=== PATIENT | female | born 1940 | race Caucasian/White ===

== ENCOUNTER 2016-10-04 18:41 | Emergency (ER) | payer MEDICARE ==
[~2016-10-04] VITALS: Ht 170.2 cm; Wt 88.3 kg
[~2016-10-04 18:41] MED LIST: ENAL20TA PO; LABE300T PO; MAXZ25 PO
[2016-10-04 18:49] VITALS: BP 124/73; PULSE 91; RESP 18; TEMP 99; O2SAT 95
[2016-10-04] MEDS ORDERED: SODIUM CHLORIDE 0.9% FLUSH 10 ML FLUSH IV FLUSH PRN (19:30)
[2016-10-04 19:34] VITALS: RESP 18; O2SAT 95
--- NOTE | 2016-10-04 19:38 | PD ---
HPI Chief Complaint: GI Complaint Time Seen by Provider: 19:36 Travel History International Travel<30 days: No Contact w/Intl Traveler<30days: No Traveled to known affect area: No History of Present Illness HPI Patient 76-year-old female with a history of chronic colitis presents emergency department for evaluation of diarrhea and nausea without vomiting. Patient states that she's been having diarrhea since last night. States that she did go to [employer] last night but she thought that her symptoms are starting to spread to that. She is on Asacol for chronic colitis. She took some Lomotil today without significant relief. Denies any abdominal pain denies any fever denies any blood in the stool or dark stools. Denies any hemoptysis or hematemesis. States she thinks that she is dehydrated. PFSH Past Medical History Cancer: No Cardiovascular Problems: No High Cholesterol: Yes Endocrine: No Gastrointestinal Disorders: Yes (ULCERATIVE COLITIS, BARRETTS ESOPHAGUS) Genitourinary: No Hepatitis: No Hiatal Hernia: Yes (SMALL ) Hypertension: Yes Immune Disorder: No Musculoskeletal: Yes (DDD CERVICAL AND SHOULDERS) Neurologic: Yes (MIGRAINES, HX VERTIGO RESOLVED) Psychiatric: Yes (ANXIETY) Respiratory: No Menopausal: Yes Past Surgical History Abdominal Surgery: Yes (UMBILICAL HERNIA) Body Medical Devices: NONE Cardiac Surgery: No Ear Surgery: No Endocrine Surgery: Yes (REMOVED BENIGN THYROID TUMOR) Eye Surgery: No Genitourinary Surgery: No Gynecologic Surgery: Yes (TL) Oral Surgery: Yes (TONSILLECTOMY) Thoracic Surgery: No Other Surgery: Yes (BENIGN THYROID TUMOR- PARTIAL THYROID REMOVED) Social History Alcohol Use: Yes (OCCAS) Tobacco Use: No (QUIT 1993 SMOKED CIGS FOR 30 YRS) Substance Use: No Allergies-Medications (Allergen,Severity, Reaction): Coded Allergies: Local Anesthetics (Verified Allergy, Mild, Swelling, 10/04/16) MOST YUSUF Succinylcholine (Verified Adverse Reaction, Severe, 10/04/16) COULDN'T WAKE UP Reported Meds & Prescriptions Reported Meds & Active Scripts Active Zofran Odt (Ondansetron Odt) 4 Mg Tab 4 Mg SL Q6HR PRN Flagyl (Metronidazole) 500 Mg Tab 500 Mg PO BID 7 Days Ciprofloxacin (Ciprofloxacin HCl) 500 Mg Tab 500 Mg PO BID 7 Days Bentyl (Dicyclomine HCl) 10 Mg Cap 10 Mg PO TID PRN Reported Omeprazole 20 Mg Tab 20 Mg PO DAILY Asacol HD (Mesalamine) 800 Mg Tab 1,600 Mg PO TID Swallow whole. Take on an empty stomach. Triamterene-Hydrochlorothiazide 37.5-25 Mg Tab 1 Tab PO DAILY Labetalol (Labetalol HCl) 200 Mg Tab 200 Mg PO TID Enalapril (Enalapril Maleate) 20 Mg Tab 20 Mg PO DAILY Review of Systems Except as stated in HPI: all other systems reviewed are Neg Physical Exam Narrative GENERAL: Well-developed well-nourished no apparent distress SKIN: Focused skin assessment warm/dry. HEAD: Atraumatic. Normocephalic. EYES: Pupils equal and round. No scleral icterus. No injection or drainage. ENT: No nasal bleeding or discharge. Mucous membranes pink and moist. NECK: Trachea midline. No JVD. CARDIOVASCULAR: Regular rate and rhythm. No murmur appreciated. RESPIRATORY: No accessory muscle use. Clear to auscultation. Breath sounds equal bilaterally. GASTROINTESTINAL: Abdomen soft, non-tender, minimally distended, tympanic percussion. Rebound no percussive tenderness. Hepatic and splenic margins not palpable. MUSCULOSKELETAL: No obvious deformities. No clubbing. No cyanosis. No edema. NEUROLOGICAL: Awake and alert. No obvious cranial nerve deficits. Motor grossly within normal limits. Normal speech. PSYCHIATRIC: Appropriate mood and affect; insight and judgment normal. Data Data Last Documented VS Vital Signs Date Time Temp Pulse Resp B/P Pulse Ox O2 Delivery O2 Flow Rate FiO2 10/04/16 23:25 18 96 10/04/16 22:16 80 156/73 Room Air 10/04/16 18:49 99.0 Orders Complete Blood Count With Diff (10/04/16 19:25) Comprehensive Metabolic Panel (10/04/16 19:25) Lipase (10/04/16 19:25) Prothrombin Time / Inr (Pt) (10/04/16 19:25) Act Partial Throm Time (Ptt) (10/04/16 19:25) Urinalysis - C+S If Indicated (10/04/16 19:25) Iv Access Insert/Monitor (10/04/16 19:25) Ecg Monitoring (10/04/16 19:25) Oximetry (10/04/16 19:25) Sodium Chloride 0.9% Flush (Ns Flush) (10/04/16 19:30) Ondansetron Inj (Zofran Inj) (10/04/16 19:45) Sodium Chlor 0.9% 1000 Ml Inj (Ns 1000 M (10/04/16 19:45) Ct Abd/Pel W Iv Contrast(Rout) (10/04/16 ) Iohexol 350 Inj (Omnipaque 350 Inj) (10/04/16 22:16) Ciprofloxacin (Cipro) (10/04/16 23:15) Metronidazole (Flagyl) (10/04/16 23:15) Labs Laboratory Tests Test 10/04/16 10/04/16 19:45 19:50 Urine Color YELLOW Urine Turbidity CLEAR Urine pH 6.0 Urine Specific [place] 1.019 Urine Protein NEG mg/dL Urine Glucose (UA) NEG mg/dL Urine Ketones NEG mg/dL Urine Occult Blood TRACE Urine Nitrite NEG Urine Bilirubin NEG Urine Leukocyte Esterase NEG Urine RBC 0-3 /hpf Urine Squamous Epithelial 6-8 /hpf Cells Urine Amorphous Sediment SMALL Urine Mucus OCC /lpf Microscopic Urinalysis Comment CULT NOT INDICATED White Blood Count 8.6 TH/MM3 Red Blood Count 4.64 MIL/MM3 Hemoglobin 13.6 GM/DL Hematocrit 39.0 % Mean Corpuscular Volume 84.1 FL Mean Corpuscular Hemoglobin 29.3 PG Mean Corpuscular Hemoglobin 34.9 % Concent Red Cell Distribution Width 12.4 % Platelet Count 263 TH/MM3 Mean Platelet Volume 9.3 FL Neutrophils (%) (Auto) 87.5 % Lymphocytes (%) (Auto) 6.6 % Monocytes (%) (Auto) 5.4 % Eosinophils (%) (Auto) 0.4 % Basophils (%) (Auto) 0.1 % Neutrophils # (Auto) 7.5 TH/MM3 Lymphocytes # (Auto) 0.6 TH/MM3 Monocytes # (Auto) 0.5 TH/MM3 Eosinophils # (Auto) 0.0 TH/MM3 Basophils # (Auto) 0.0 TH/MM3 CBC Comment DIFF FINAL Differential Comment Prothrombin Time 10.7 SEC Prothromb Time International 1.0 RATIO Ratio Activated Partial 27.3 SEC Thromboplast Time Sodium Level 132 MEQ/L Potassium Level 3.7 MEQ/L Chloride Level 96 MEQ/L Carbon Dioxide Level 28.2 MEQ/L Anion Gap 8 MEQ/L Blood Urea Nitrogen 15 MG/DL Creatinine 0.79 MG/DL Estimat Glomerular Filtration 71 ML/MIN Rate Random Glucose 137 MG/DL Calcium Level 8.2 MG/DL Total Bilirubin 0.9 MG/DL Aspartate Amino Transf 17 U/L (AST/SGOT) Alanine Aminotransferase 24 U/L (ALT/SGPT) Alkaline Phosphatase 74 U/L Total Protein 7.1 GM/DL Albumin 3.4 GM/DL Lipase 107 U/L MDM Medical Decision Making Medical Screen Exam Complete: Yes Emergency Medical Condition: Yes Differential Diagnosis Colitis, diverticulitis, small bowel obstruction seems unlikely, electrolyte abnormality. Narrative Course 76-year-old female with a history of chronic colitis presents emergency department for evaluation of abdominal distention and discomfort. She was offered pain medicine multiple times and declined. Basic labs are reassuring, CAT scan of her abdomen does show some evidence of diverticulitis. There is also a pancreatic tail cystic mass which the patient has been aware of in the past. On my revisit the patient states she is feeling better after the Zofran and fluids. I discussed with her that she needs to follow up with her colorectal surgeon Dr. Fitzpatrick and she has plans for colonoscopy on Wednesday. Recommend that she call first thing Wednesday after the holiday weekend to reevaluate the possibility for colonoscopy. She is also encouraged follow- up with her GI doctor Dr. Hendrickson. She is stable for discharge at this time. Discussed symptomatically management returned ED criteria. Diagnosis Primary Impression: Diverticulitis Additional Impression: Pancreatic mass Med/Other Pt SpecificInfo: Prescription(s) given Scripts Ondansetron Odt (Zofran Odt)4 Mg Tab4 Mg SL Q6HR PRN (Nausea/Vomiting) #20 TAB Ref 0 Prov:Telly Hayward MD 10/04/16 Metronidazole (Flagyl)500 Mg [id number] Mg PO BID 7 Days Ref 0 Prov:Telly Hayward MD 10/04/16 Ciprofloxacin 500 Mg [id number] Mg PO BID 7 Days Ref 0 Prov:Telly Hayward MD 10/04/16 Dicyclomine (Bentyl)10 Mg Cap10 Mg PO TID PRN (Bowel Management) #20 CAP Ref 0 Prov:Telly Hayward MD 10/04/16 Disposition: 01 DISCHARGE HOME Condition: Stable Telly Hayward MD October 04, 2016 19:38
[2016-10-04] MEDS ORDERED: SODIUM CHLOR 0.9% 1000 ML INJ 1,000 ML IV ONE (19:45)
[2016-10-04] MEDS ORDERED: ONDANSETRON HCL 4 MG/2 ML VIAL IV PUSH ONE (19:45)
[2016-10-04 20:04] LABS: BLOOD, URINE TRACE (NEG); GLUCOSE,URINE NEG (NEG); KETONE, URINE NEG (NEG); NITRITE,URINE NEG (NEG)
[2016-10-04 20:21] LABS: URINE COLOR YELLOW (YELLW/STRAW)
[2016-10-04 20:22] LABS: MUCUS URINE OCC /lpf (OCC); RBC, URINE 0-3 /hpf (0-3)
[2016-10-04 20:23] LABS: COMMENT (UR) CULT NOT INDICATED; CULTURE IF INDICATED CULT NOT INDICATED
[2016-10-04] MEDS ORDERED: OMEP20TA PO (20:24)
[2016-10-04] MEDS ORDERED: ASAC800T PO (20:24)
[2016-10-04] MEDS ORDERED: ENAL20TA PO (20:24)
[2016-10-04] MEDS ORDERED: TRIA37.5 PO (20:24)
[2016-10-04] MEDS ORDERED: LABE200T2 PO (20:24)
[2016-10-04 20:29] LABS: CHLORIDE 96 MEQ/L (98-107); POTASSIUM 3.7 MEQ/L (3.5-5.1); SODIUM (NA) 132 MEQ/L (136-145)
[2016-10-04 20:33] LABS: ANION GAP 8 MEQ/L (5-15); BICARBONATE 28.2 MEQ/L (21.0-32.0); BLOOD UREA NITROGEN 15 MG/DL (7-18)
[2016-10-04 20:34] LABS: APTT (PATIENT) 27.3 SEC (24.3-30.1); PROTHROMBIN TIME - PATIENT 10.7 SEC (9.8-11.6)
[2016-10-04 20:36] LABS: ALT (GPT) 24 U/L (10-53); AST (GOT) 17 U/L (15-37); GLOMERULAR FILTRATION RATE 71 ML/MIN (>89)
[2016-10-04 20:37] LABS: TOTAL BILIRUBIN ADULT 0.9 MG/DL (0.2-1.0)
[2016-10-04 20:38] LABS: ALKALINE PHOSPHATASE 74 U/L (45-117)
[2016-10-04 20:41] LABS: AUTOMATED NEUTROPHIL # 7.5 TH/MM3 (1.8-7.7); BASOPHIL % 0.1 % (0.0-2.0); EOSINOPHIL % 0.4 % (0.0-4.0); LYMPH % 6.6 % (9.0-44.0); LYMPHOCYTE # 0.6 TH/MM3 (1.0-4.8); MEAN CELL VOLUME 84.1 FL (80.0-100.0); MEAN CORPUSCULAR HEMOGLOBIN 29.3 PG (27.0-34.0); MEAN CORPUSCULAR HGB CONC 34.9 % (32.0-36.0); MONO % 5.4 % (0.0-8.0); NEUT % 87.5 % (16.0-70.0); PLATELET COUNT 263 TH/MM3 (150-450); RED BLOOD COUNT 4.64 MIL/MM3 (4.00-5.30); RED CELL DISTRIBUTION WIDTH 12.4 % (11.6-17.2); WHITE BLOOD COUNT 8.6 TH/MM3 (4.0-11.0)
[2016-10-04 20:45] LABS: HEMO FLAGS DIFF FINAL
[2016-10-04 20:54] VITALS: BP 145/73; PULSE 73; RESP 18; O2SAT 97
[2016-10-04 22:16] VITALS: BP 156/73; PULSE 80; RESP 18; O2SAT 99
[2016-10-04] MEDS ORDERED: IOHEXOL 350 MG/ML 10 ML VIAL (for RAD DIAG) IV ONE (22:16)
--- NOTE | 2016-10-04 22:37 | RADHPO ---
EXAM DATE/TIME: 10/04/2016 21:56 [facility] COMPARISON: No previous studies available for comparison. INDICATIONS : Epigastric pain. Nausea and diarrhea. Distention. IV CONTRAST: 100 cc Omnipaque 350 (iohexol) IV ORAL CONTRAST: No oral contrast ingested. RADIATION DOSE: 18.34 CTDIvol (mGy) MEDICAL HISTORY : Ulcerative colitis. Hernia, hiatal. Hypertension. Fernando's esophagus. SURGICAL HISTORY : Umbilical hernia repair. Tubal ligation. ENCOUNTER: Initial ACUITY: 1 day PAIN SCALE: 3/10 LOCATION: Bilateral upper quadrant TECHNIQUE: Volumetric scanning of the abdomen and pelvis was performed. Using automated exposure control and ad justment of the mA and/or kV according to patient size, radiation dose was kept as low as reasonably achievable to obtain optimal diagnostic quality images. FINDINGS: There is evidence of a complex cystic mass arising from the tail of the pancreas measuring 3.2 x 1.5 x 2.0 cm. MRI of the abdomen with contrast may be helpful for further evaluation of this indetermina te lesion. The liver is unremarkable without focal mass. Minimal focal fatty infiltration is noted adjacent to the gallbladder fossa. The patient is status post cholecystectomy. No biliary ductal di latation is noted. A small hiatal hernia is noted. The spleen is normal. There are adrenal nodules measuring 2.1 x 1.4 cm on the left and 1.4 x 1.0 cm on the right consistent with probable adrenal ad enomas. Bilateral renal cysts are also noted with the largest on the right measuring 2.6 cm. There is no solid mass or hydronephrosis. The abdominal aorta is calcified but is not aneurysmally dilated . The inferior vena cava is normal. There is no paraaortic, retroperitoneal or mesenteric lymphaden opathy. There is some mild focal thickening involving the proximal sigmoid colon with some diverticu la in this location. This finding raises the possibility of mild focal acute diverticulitis or colit is. Clinical correlation is recommended. The uterus is enlarged. The urinary bladder is unremarkab le. Mild degenerative changes and scoliosis of the lumbar spine are noted. Fibrotic scarring is not ed within the lung bases. CONCLUSION: 1. Complex cystic mass arising from the tail of the pancreas measuring 3.2 x 1.5 x 2.0 cm which is i ndeterminate. MRI of the abdomen with contrast may be helpful for further evaluation of this finding . 2. Focal mild thickening and scattered diverticula involving the proximal sigmoid colon raising the possibility of mild acute diverticulitis or colitis. Clinical correlation is recommended. 3. Enlarged uterus. 4. Bilateral adrenal nodules measuring 2.1 x 1.4 cm on the left and 1.4 x 1.0 cm on the right consis tent with possible adrenal adenomas. 5. Bilateral renal cysts. 6. Mild degenerative changes and scoliosis of the lumbar spine. Telly Kilpatrick MD on October 04, 2016 at 22:19 Board Certified Radiologist. This report was verified electronically.
[2016-10-04] MEDS ORDERED: METR-1 PO (22:54)
[2016-10-04] MEDS ORDERED: DICY10 PO (22:54)
[2016-10-04] MEDS ORDERED: CIPR500T2 PO (22:54)
[2016-10-04] MEDS ORDERED: ZOFR4TAB3 SL (22:54)
[2016-10-04] MEDS ORDERED: CIPROFLOXACIN 500 MG TAB PO ONE (23:15)
[2016-10-04] MEDS ORDERED: metroNIDAZOLE 500 MG TAB PO ONE (23:15)
== END 2016-10-04 23:28 | disposition home or self-care (01) ==
LOC: PHED 18:41
DX: E78.00 Pure hypercholesterolemia, unspecified (principal); I10 Essential (primary) hypertension; M50.30 Other cervical disc degeneration, unspecified cervical region; K57.92 Diverticulitis of intestine, part unspecified, without perforation or abscess without bleeding; R19.09 Other intra-abdominal and pelvic swelling, mass and lump
CPT/HCPCS: 74177; 80053; 81001; 83690; 85025; 85610; 85730; 96361; 96374; 99285; J2405; J7030; Q9967

== ENCOUNTER 2017-03-18 06:02 | Day surgery (SDC) | payer MEDICARE ==
[~2017-03-18] VITALS: Ht 170.2 cm; Wt 80.9 kg
[~2017-03-18 06:02] MED LIST changes: +ASAC800T PO; +CIPR500T2 PO; +DICY10 PO; +LABE200T2 PO; -LABE300T PO; -MAXZ25 PO; +METR-1 PO; +OMEP20TA93 PO; +TRIA37.5 PO; +ZOFR4TAB3 SL
[2017-03-18] MEDS ORDERED: LORA1TAB12 PO (06:43)
[2017-03-18] MEDS ORDERED: ceFAZolin 2 GM PREMIX 50 ML - implanted port/tunneled catheter insertion IV SCH (06:45)
[2017-03-18] MEDS ORDERED: SODIUM CHLORIDE 0.9% 1000 ML IV SCH (06:45)
[2017-03-18] MEDS ORDERED: VANCOMYCIN 1000 MG/NS 250 ML - implanted port/tunneled catheter IV SCH ×2 (06:45)
[2017-03-18] MEDS ORDERED: POVIDONE IODINE 5% (ANTISEPSIS KIT) 4 APPLICATIONS EACH NARE SCH (06:45)
[2017-03-18] MEDS ORDERED: CHLORHEXIDINE GLUCONATE 2 % 1 PACK (2 CLOTHS) TOPICAL SCH (06:45)
[2017-03-18 06:46] VITALS: BP 151/76; PULSE 76; RESP 20; TEMP 98.2; O2SAT 93
[2017-03-18 07:26] LABS: APTT (PATIENT) 23.2 SEC (24.3-30.1); PROTHROMBIN TIME - PATIENT 10.7 SEC (9.8-11.6)
[2017-03-18] MEDS ORDERED: MIDAZOLAM HCL 2 MG/2 ML VIAL ONE (07:56)
[2017-03-18] MEDS ORDERED: LIDOCAINE 1%/EPINEPHrine 1:100,000 SOLN 20 ML VIAL ONE (08:21)
--- NOTE | 2017-03-18 09:06 | PD.RAD ---
Post Procedure Progress Note Pre Procedure Diagnosis: (1) Pancreatic mass Post Procedure Diagnosis: (1) Pancreatic mass Procedure Date: Mar 18, 2017 Supervising Radiologist: Troy Huynh Proceduralist/Assist: RT Frandy(R), RT Nicki(R) Anesthesia: Local, Analgesia, Conscious Sedation Plan of Activity Patient to Unit: ROPU Patient Condition: Good See PACS Report for procedural detail/treatment Central Venous Access Device Procedure 1 Right Internal Jugular Infusaport Placement single lumen Wolof: 8 Troy Huynh MD Mar 18, 2017 09:06
[2017-03-18 09:15] VITALS: BP 162/84; PULSE 70; RESP 16; TEMP 97.6; O2SAT 92
[2017-03-18] MEDS ORDERED: SODIUM CHLORIDE 0.9% FLUSH 10 ML FLUSH IVF PRN (09:15)
[2017-03-18 09:30] VITALS: BP 173/89; PULSE 74; RESP 16; O2SAT 92
[2017-03-18 10:00] VITALS: BP 142/73; PULSE 75; RESP 16; O2SAT 93
--- NOTE | 2017-03-18 10:17 | RADRPT ---
EXAM DATE/TIME: 03/18/2017 09:07 [facility] COMPARISON: No previous studies available for comparison. INDICATIONS : PATIENT PRESENTS WITH PANCREATIC CANCER IN NEED OF PORT PLACEMENT. 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 Vancomycin within 2 hours of procedure, Ancef (or alternative) within 1 hour of procedure. DEVICE: 1. 8 [place] single lumen [id number] PROCEDURE : 1. Continuous pulse oximetry and EKG monitoring. 2. Intravenous conscious sedation. 3. Ultrasound guidance for venous access. 4. Fluoroscopic guided implantable central venous port placement. The patient was placed supine. The neck was prepped in sterile fashion. Full sterile technique was u sed, including cap, mask, sterile gloves and gown, and a large sterile sheet. Hand hygiene and 2% ch lorhexidine Betadine was utilized per protocol for cutaneous antisepsis with appropriate dry time for site. Sterile gel and sterile probe cover were utilized for ultrasound guidance. The skin and sub cutaneous tissues were infiltrated with local anesthetic solution. Under direct ultrasound guidance, central venous access was accomplished in the targeted vessel. The ultrasound images depicting access guidance were stored and saved to PACS for permanent record. A s ubcutaneous pocket was created using blunt dissection. The port was introduced to the pocket. The c atheter tubing was fed through a subcutaneous tunnel to the venotomy site. The catheter tubing was c ut to a suitable length and then was introduced through a valved Peel-Away sheath and positioned with catheter tubing tip at the cavo-atrial junction level. The pocket incision was closed with subcutic ular Vicryl suture. Steri-Strips were applied. The port was flushed and locked with heparin solutio n per protocol. Sterile dressing was applied to the site. The patient tolerated the procedure well. Conscious sedation was performed with the prescribed dosages and duration as above in the presence of an independent trained radiology nurse to assist in the monitoring of the patient. EKG and oximetry remained stable throughout the procedure. The patient tolerated the procedure well and there were no complications. The patient was sent to post anesthesia recovery in stable condition. CONCLUSION: Uncomplicated ultrasound and fluoroscopic guided implanted central venous port catheter placement as described in detail above. An 8 Kazakh Power port was placed. Troy Huynh MD on March 18, 2017 at 10:15 Board Certified Radiologist. This report was verified electronically.
[2017-03-18 10:30] VITALS: BP 144/70; PULSE 81; RESP 16; O2SAT 93
[2017-03-18 11:00] VITALS: BP 148/80; PULSE 81; RESP 16; O2SAT 95
== END 2017-03-18 11:15 | disposition home or self-care (01) ==
LOC: HROP 06:02 → HRIP 06:30 → HROP 11:15
PROVIDERS: ATTEND Internal Medicine Hematology & Oncology
DX: Z45.2 Encounter for adjustment and management of vascular access device (principal); C25.9 Malignant neoplasm of pancreas, unspecified; I25.10 Atherosclerotic heart disease of native coronary artery without angina pectoris; I10 Essential (primary) hypertension; J44.9 Chronic obstructive pulmonary disease, unspecified
CPT/HCPCS: 36561; 76937; 77001; 85610; 85730; 99152; 99153; C1788; J0690; J1642; J2250; J3010; J3370; J7030; J7050

== ENCOUNTER 2017-05-12 15:35 | Observation (INO) | payer MEDICARE ==
[~2017-05-12] VITALS: Ht 170.2 cm; Wt 87.6 kg
[2017-05-12] VITALS (10 sets, daily range): BP systolic 151–182; BP diastolic 71–97; PULSE 57–73; RESP 16–20; TEMP 96–98; O2SAT 95–99
[~2017-05-12 15:35] MED LIST changes: -CIPR500T2 PO; +LORA1TAB12 PO; -METR-1 PO
[2017-05-12] MEDS ORDERED: ASPIRIN 81 MG CHEW TAB CHEW ONE (16:15)
--- NOTE | 2017-05-12 16:29 | PD ---
HPI Chief Complaint: Chest Pain Time Seen by Provider: 16:03 Travel History International Travel<30 days: No Contact w/Intl Traveler<30days: No Traveled to known affect area: No History of Present Illness HPI Patient is a 76 year old female, with history of pancreatic cancer, last chemo 05/04, who comes in complaining of chest pain. She was at the oncology center when she told them she was having pain to the left side of her chest. Labs were drawn there and so far show no abnormalities. She says the pain is on the left side of her left breast and radiates around into her chest. She says it has been going on for the past 2 days. She denies shortness of breath, fever or chills. She denies leg swelling. She says she has never had this pain before. Pushing on the area makes the pain worse. PFSH Past Medical History Cancer: Yes (PANCREATIC,SPLEEN) Cardiovascular Problems: Yes (htn ) High Cholesterol: Yes Chemotherapy: Yes (05/04/17) Diabetes: No Diminished Hearing: No Endocrine: No Gastrointestinal Disorders: Yes (ULCERATIVE COLITIS, BARRETTS ESOPHAGUS) Genitourinary: No Hepatitis: No Hiatal Hernia: Yes (SMALL ) Hypertension: Yes Immune Disorder: No Musculoskeletal: Yes (DDD CERVICAL AND SHOULDERS) Neurologic: Yes (MIGRAINES, HX VERTIGO RESOLVED) Psychiatric: Yes (ANXIETY) Reproductive: No Respiratory: No Thyroid Disease: No Tetanus Vaccination: < 5 Years Influenza Vaccination: Yes ?: Not Menopausal: Yes Past Surgical History Abdominal Surgery: Yes (UMBILICAL HERNIA) AICD: No Body Medical Devices: NONE Cardiac Surgery: No Ear Surgery: No Endocrine Surgery: Yes (REMOVED BENIGN THYROID TUMOR, pancreas r/t cancer) Eye Surgery: No Genitourinary Surgery: No Gynecologic Surgery: Yes (TL) Joint Replacement: No Oral Surgery: Yes (TONSILLECTOMY) Pacemaker: No Thoracic Surgery: No Other Surgery: Yes (BENIGN THYROID TUMOR- PARTIAL THYROID REMOVED) Social History Alcohol Use: Yes (OCCAS) Tobacco Use: No (QUIT 1993 SMOKED CIGS FOR 30 YRS) Substance Use: No Allergies-Medications (Allergen,Severity, Reaction): Coded Allergies: benzocaine (Unverified Allergy, Mild, Swelling, 05/12/17) MOST YUSUF STATES 1970 HAD SWELLING IN FACE USES LIDOCAINE WITHOUT PROBLEM NOW bupivacaine (Unverified Allergy, Mild, Swelling, 05/12/17) MOST YUSUF ethyl chloride (Unverified Allergy, Mild, Swelling, 05/12/17) MOST YUSUF ropivacaine (Unverified Allergy, Mild, Swelling, 05/12/17) MOST YUSUF succinylcholine (Unverified Adverse Reaction, Severe, 05/12/17) COULDN'T WAKE UP Reported Meds & Prescriptions Reported Meds & Active Scripts Active Zofran Odt (Ondansetron Odt) 4 Mg Tab 4 Mg SL Q6HR PRN Bentyl (Dicyclomine HCl) 10 Mg Cap 10 Mg PO TID PRN Reported Lorazepam 1 Mg Tab 1 Mg PO DAILY PRN Omeprazole 20 Mg Tab 20 Mg PO DAILY Asacol HD (Mesalamine) 800 Mg Tab 1,600 Mg PO TID Swallow whole. Take on an empty stomach. Triamterene-Hydrochlorothiazide 37.5-25 Mg Tab 1 Tab PO DAILY Labetalol (Labetalol HCl) 200 Mg Tab 200 Mg PO TID Enalapril (Enalapril Maleate) 20 Mg Tab 20 Mg PO BID Review of Systems Except as stated in HPI: all other systems reviewed are Neg General / Constitutional: No: Fever, Chills HENT: No: Headaches, Lightheadedness Cardiovascular: Positive: Chest Pain or Discomfort Respiratory: No: Shortness of Breath Gastrointestinal: No: Nausea, Vomiting Musculoskeletal: No: Myalgias, Edema Skin: No Rash, No Change in Pigmentation Neurologic: No: Weakness, Dizziness Physical Exam Narrative GENERAL: Awake and alert, in no acute distress. SKIN: Focused skin assessment warm/dry. No rash or signs of infection. HEAD: Atraumatic. Normocephalic. EYES: Pupils equal and round. No scleral icterus. ENT: Mucous membranes pink and moist. NECK: Trachea midline. No JVD. CARDIOVASCULAR: Regular rate and rhythm. No murmur appreciated. Tender to palpation of the left chest wall. RESPIRATORY: No accessory muscle use. Clear to auscultation. Breath sounds equal bilaterally. GASTROINTESTINAL: Abdomen soft, non-tender, nondistended. MUSCULOSKELETAL: No obvious deformities. No clubbing. No cyanosis. No edema. NEUROLOGICAL: Awake and alert. No obvious cranial nerve deficits. Motor grossly within normal limits. Normal speech. PSYCHIATRIC: Appropriate mood and affect; insight and judgment normal. Data Data Last Documented VS Vital Signs Date Time Temp Pulse Resp B/P (MAP) Pulse Ox O2 Delivery O2 Flow Rate FiO2 05/12/17 18:00 66 16 182/85 (117) 05/12/17 18:00 98 Room Air 05/12/17 15:49 98.0 Orders Orders Electrocardiogram (05/12/17 15:39) Chest, Ap & Lat (05/12/17 ) Aspirin Chew (Aspirin Chew) (05/12/17 16:15) Morphine Inj (Morphine Inj) (05/12/17 18:00) Admit Order (Ed Use Only) (05/12/17 ) MDM Medical Decision Making Medical Screen Exam Complete: Yes Emergency Medical Condition: Yes Medical Record Reviewed: Yes Interpretation(s) ECG shows NSR at 71, no ST elevation or depression Differential Diagnosis ACS vs NSTEMI vs STEMI vs pneumonia vs pneumothorax Narrative Course Patient is a 76-year-old female comes in complaining of left-sided chest pain. Exam shows tenderness to palpation of the left chest wall. Labs were drawn had the oncology center, prior to arrival. They show no acute abnormalities. Patient was given aspirin and morphine for pain. She was placed in the chest pain center for further management. Diagnosis Primary Impression: Chest pain Qualified Codes: R07.9 - Chest pain, unspecified Admitting Information Admitting Physician Requests: Jaja Sharp MD May 12, 2017 16:29
--- NOTE | 2017-05-12 17:01 | RADRPT ---
EXAM DATE/TIME: 05/12/2017 16:16 [facility] COMPARISON: CHEST SINGLE AP, August 13, 2015, 9:48. INDICATIONS : Chest pain. MEDICAL HISTORY : Ulcerative colitis. Hernia, hiatal. Hypertension. Fernando's esophagus. SURGICAL HISTORY : Umbilical hernia repair. Tubal ligation. ENCOUNTER: Initial ACUITY: 1 day PAIN SCORE: 4/10 LOCATION: Left chest FINDINGS: The cardiac silhouette is normal in transverse diameter. The lungs are free of acute parenchymal opac ity. No effusions are identified. Xdcyda-p-Gwfa is in place via right internal jugular approach with its tip in the superior vena cava. The background interstitium is prominent though this is likely chr onic in nature. CONCLUSION: 1. No acute cardiopulmonary disease. Ignacio Aguilar MD on May 12, 2017 at 16:58 Board Certified Radiologist. This report was verified electronically.
[2017-05-12] MEDS ORDERED: MORPHINE SULFATE 2 MG/ML INJ IV PUSH ONE (18:00)
[2017-05-12] MEDS ORDERED: SODIUM CHLORIDE 0.9% FLUSH 10 ML FLUSH IV FLUSH PRN (18:15)
[2017-05-12] MEDS ORDERED: NITROGLYCERIN 0.4 MG SL 25 TABS/BTL SL PRN (18:15)
[2017-05-12] MEDS ORDERED: POTASSIUM CHLORIDE 20 MEQ CONTROLLED RELEASE TAB PO ONE (18:15)
[2017-05-12 19:15] LABS: TROPONIN I LESS THAN 0.02 NG/ML (0.02-0.05)
[2017-05-12] MEDS: ENALAPRIL MALEATE 10 MG TAB PO SCH (20:13)
[2017-05-12] MEDS: SODIUM CHLORIDE 0.9% FLUSH 10 ML FLUSH IV FLUSH SCH (20:15)
[2017-05-12] MEDS ORDERED: MORPHINE SULFATE 2 MG/ML INJ IV PUSH PRN (21:00)
[2017-05-12 22:11] LABS: TROPONIN I LESS THAN 0.02 NG/ML (0.02-0.05)
[2017-05-13] VITALS: BP 168/84; PULSE 61; RESP 20; TEMP 96.4; O2SAT 97
[2017-05-13 04:00] VITALS: BP 140/96; PULSE 68; RESP 20; TEMP 96.7; O2SAT 97
[2017-05-13 08:00] VITALS: BP 201/98; PULSE 74; RESP 12; TEMP 96.9; O2SAT 95; O2SAT 98
[2017-05-13] MEDS: SODIUM CHLORIDE 0.9% FLUSH 10 ML FLUSH IV FLUSH SCH (08:44)
[2017-05-13] MEDS: ENALAPRIL MALEATE 10 MG TAB PO SCH (08:44)
[2017-05-13] MEDS ORDERED: TRIAMTERENE/HCTZ 37.5 MG/25 MG TAB PO SCH (09:00)
[2017-05-13] MEDS ORDERED: LABETALOL HCL 200 MG TAB PO SCH (09:00)
[2017-05-13] MEDS ORDERED: MESALAMINE HD 800 MG DELAYED RELEASE TAB PO SCH (09:00)
[2017-05-13] MEDS ORDERED: cloNIDine HCL 0.1 MG TAB PO ONE (09:45)
--- NOTE | 2017-05-13 09:54 | HHI.DCPOC ---
Discharge Care Plan Diagnosis: (1) Chest pain (2) Accelerated hypertension Goals to Promote Your Health * To prevent worsening of your condition and complications * To maintain your health at the optimal level Directions to Meet Your Goals Take your medications as prescribed Follow your dietary instruction Follow activity as directed Keep your appointments as scheduled Take your immunizations and boosters as scheduled If your symptoms worsen call your PCP, if no PCP go to Urgent Care Center or Emergency Room Smoking is Dangerous to Your Health. Avoid second hand smoke Call the 24-hour hour crisis hotline for domestic abuse at [facility] [place] May 13, 2017 09:53
[2017-05-13 11:25] VITALS: BP 123/61; PULSE 72; RESP 16; TEMP 96.7; O2SAT 99
--- NOTE | 2017-05-13 11:45 | HHI.HP ---
HPI Service [facility] Primary Care Physician Unknown Admission Diagnosis Chest Pain Diagnoses: (1) Chest pain Diagnosis: Principal (2) Accelerated hypertension Diagnosis: Principal Chief Complaint: Chest discomfort Travel History International Travel<30 Days: No Contact w/Intl Traveler <30 Da: No Traveled to Known Affected Are: No History of Present Illness This is a 86-year-old female with known history of hypertension, hyperlipidemia, distal pancreatic and spleen cancer, history of ulcerative colitis, Fernando's esophagus who presented to hospital at the request of oncology because of chest discomfort. Patient states that for the last 3 days she has been having a constant pain 5/10 on a pain scale located in her mid axillary region just inferior to her armpit. She states that it is possible and reproducible if she pushes on the specific spot. She denies any nausea, vomiting, radiation of pain to the neck, back, shoulder, arm. Denies any diaphoresis, lightheadedness, dizziness, shortness of breath, dyspnea. Patient had workup done emergency department had unremarkable cardiac enzymes and EKG. However due to the patient's risk factors, it was recommended by the ER physician that patient be observed in the hospital for further evaluation management. Patient indicates that when she was emergency department she was given nitroglycerin without any improvement. Patient was given morphine with significant improvement and complete resolution of her pain. However there is still point tenderness noted in the midaxillary region upon palpation. Patient has have a billing auditor Dr. griffin, she does not indicate that she is ever undergone any stress test or cardiac catheterization. She was seeing him for management of her blood pressure and subsequently referred to nephrology for blood pressure management. At the present time patient states that the pain resolved, she feels that it is musculoskeletal in nature. She prefers not to undergo any stress testing. Review of Systems Cardiovascular: COMPLAINS OF: Chest pain Except as stated in HPI: all other systems reviewed are Neg Past Family Social History Past Medical History Hypertension Hyperlipidemia Ulcer colitis History of Fernando's esophagus History of increasing headache and spleen cancer Past Surgical History Cholecystectomy Tubal ligation Umbilical hernia repair Thyroid nodule removal Tonsillectomy Splenectomy and tail of pancreas removal Reported Medications Last Impressions Chest X-Ray 05/12/17 0000 Signed Impressions: Service Date/Time: Friday, May 12, 2017 16:16 - CONCLUSION: 1. No acute cardiopulmonary disease. Ignacio Aguilar MD Allergies: Coded Allergies: benzocaine (Unverified Allergy, Mild, Swelling, 05/12/17) MOST YUSUF STATES 1970 HAD SWELLING IN FACE USES LIDOCAINE WITHOUT PROBLEM NOW bupivacaine (Unverified Allergy, Mild, Swelling, 05/12/17) MOST YUSUF ethyl chloride (Unverified Allergy, Mild, Swelling, 05/12/17) MOST YUSUF ropivacaine (Unverified Allergy, Mild, Swelling, 05/12/17) MOST YUSUF succinylcholine (Unverified Adverse Reaction, Severe, 05/12/17) COULDN'T WAKE UP Family History Unknown, patient is adopted Social History Patient states that she quit smoking in 1992, prior to that she smoked 2 pack a cigarettes a day for 30 years. Denies any alcohol or illicit drugs Physical Exam Vital Signs Vital Signs Date Time Temp Pulse Resp B/P (MAP) Pulse Ox O2 Delivery O2 Flow Rate FiO2 05/13/17 11:25 96.7 72 16 123/61 (81) 99 05/13/17 08:00 96.9 74 12 201/98 (132) 98 05/13/17 08:00 95 21 05/13/17 07:58 18 05/13/17 04:00 96.7 68 20 140/96 (111) 97 Automatic Cuff 05/13/17 00:00 96.4 61 20 168/84 (112) 97 05/12/17 21:50 98 21 05/12/17 21:11 57 05/12/17 21:00 96.0 58 20 174/82 (112) 99 05/12/17 20:04 60 16 160/75 (103) 98 Room Air 05/12/17 19:02 16 05/12/17 19:00 66 16 151/81 (104) 95 Room Air 05/12/17 18:51 16 05/12/17 18:18 98 21 05/12/17 18:00 66 16 182/85 (117) 05/12/17 18:00 65 16 98 Room Air 05/12/17 17:00 65 16 170/71 (104) 97 Room Air 05/12/17 16:35 66 16 152/71 (98) 98 Room Air 05/12/17 15:57 75 16 99 Room Air 05/12/17 15:49 98.0 73 16 174/97 (122) 99 Physical Exam GENERAL: Well-developed, well-nourished, in no acute distress. alert and orientated HEENT: Head is normocephalic without any lesions or masses noted. Facial features are symmetric. Eyes: Pupils equal round reactive to light. Extraocular muscles are intact. Conjunctivae were clear. Oropharyngeal: Pharynx without any erythema edema. Tongue is midline without deviation. Buccal mucosa is moist without any masses or lesions NECK: Supple without any masses. Trachea midline no deviation. No JVD, no bruits are appreciated CARDIAC: Regular rhythm, regular rate. S1/S2 are heard. No murmurs gallops or rubs. LUNGS: Clear to auscultation bilaterally. No wheeze, rhonchi or rales. No use of accessory muscles on inspiration or expiration. ABDOMEN: Soft, nontender. Nondistended. Bowel sounds heard in all 4 quadrants. No organomegaly or masses. Negative rebound, negative guarding EXTREMITIES: No edema, pulses are equal bilaterally. No cyanosis or clubbing NEUROLOGY: Mood and affect appear appropriate. Cranial nerves II through XII grossly intact. Muscle strength 5/5 in upper and lower extremities bilaterally. Deep tendon reflexes are 2+ in upper and lower extremities bilaterally. LEFT THORAX: Patient with reproducible palpable point tenderness noted in the mid axillary region approximately 5 cm inferior to the armpit. Does not cause any radiation of pain on palpation. Laboratory Laboratory Tests Test 05/12/17 18:30 05/12/17 21:30 Total Creatine Kinase 45 45 Troponin I LESS THAN 0.02 LESS THAN 0.02 Caprini VTE Risk Assessment Caprini VTE Risk Assessment: Mod/High Risk (score >= 2) Caprini Risk Assessment Model Point Value = 1 Point Value = 2 Point Value = 3 Point Value = 5 Age 41-60 Minor surgery BMI > 25 kg/m2 Swollen legs Varicose veins or History of unexplained or recurrent spontaneous Oral contraceptives or hormone replacement Sepsis (< 1 month) Serious lung disease, including pneumonia (< 1 month) Abnormal pulmonary function Acute myocardial infarction Congestive heart failure (< 1 month) History of inflammatory bowel disease Medical patient at bed rest Age 61-74 Arthroscopic surgery Major open surgery (> 45 min) Laparoscopic surgery (> 45 min) Malignancy Confined to bed (> 72 hours) Immobilizing plaster cast Central venous access Age >= 75 History of VTE Family history of VTE Factor V Leiden Prothrombin [id number] Lupus anticoagulant Anticardiolipin antibodies Elevated serum homocysteine Heparin-induced thrombocytopenia Other congenital or acquired thrombophilia Stroke (< 1 month) Elective arthroplasty Hip, pelvis, or leg fracture Acute spinal cord injury (< 1 month) Prophylaxis Regimen Total Risk Factor Score Risk Level Prophylaxis Regimen 0-1 Low Early ambulation 2 Moderate Order ONE of the following: *Sequential Compression Device (SCD) *Heparin 5000 units SQ BID 3-4 Higher Order ONE of the following medications: *Heparin 5000 units SQ TID *Enoxaparin/Lovenox 40 mg SQ daily (WT < 150 kg, CrCl > 30 mL/min) *Enoxaparin/Lovenox 30 mg SQ daily (WT < 150 kg, CrCl > 10-29 mL/min) *Enoxaparin/Lovenox 30 mg SQ BID (WT < 150 kg, CrCl > 30 mL/min) AND/OR *Sequential Compression Device (SCD) 5 or more Highest Order ONE of the following medications: *Heparin 5000 units SQ TID (Preferred with Epidurals) *Enoxaparin/Lovenox 40 mg SQ daily (WT < 150 kg, CrCl > 30 mL/min) *Enoxaparin/Lovenox 30 mg SQ daily (WT < 150 kg, CrCl > 10-29 mL/min) *Enoxaparin/Lovenox 30 mg SQ BID (WT < 150 kg, CrCl > 30 mL/min) AND *Sequential Compression Device (SCD) Assessment and Plan Assessment and Plan Chest pain, atypical, Patient does have increased risk factors to include age, hypertension, hyperlipidemia, history tobacco use Patient's pain is reproducible on palpation, likely muscle skeletal and nature Patient has been ruled out for acute coronary event with serial cardiac enzymes that are negative, serial EKG shows sinus rhythm without any changes Patient was started on aspirin, morphine for pain control, nitroglycerin as needed Patient does not want to pursue any stress testing at this time Discuss with patient's billing auditor Dr. griffin, who is in agreement patient is ruled out for acute coronary event. Recommended outpatient follow-up Accelerated hypertension, improved Home medications was continued Clonidine 0.1 mg 1 Discharge disposition Discharge home in stable condition Diet: Healthy heart diet Activity: Ad amy. Medications per medication reconciliation Follow-up with primary medical doctor in one week, billing auditor in 2 weeks Discussed Condition With Patient, Dr. Sellers, Dr. griffin, nursing staff Problem Qualifiers (1) Chest pain: Qualified Codes: R07.9 - Chest pain, unspecified Yoav Robins May 13, 2017 11:45
--- NOTE | 2017-05-14 23:31 | EKG ---
Date Performed: 05/12/2017 Time Performed: 21:19:51 PTAGE: 76 years EKG: SINUS BRADYCARDIA WITH FIRST DEGREE AV BLOCK PROLONGED QT INTERVAL ABNORMAL ECG PREVIOUS TRACING : 05/12/2017 18.34 DOCTOR: Estefany Mayer Interpretating Date/Time 05/14/2017 23:31:16
--- NOTE | 2017-05-14 23:38 | EKG ---
Date Performed: 05/12/2017 Time Performed: 18:34:50 PTAGE: 76 years EKG: Sinus rhythm NORMAL ECG PREVIOUS TRACING : 05/12/2017 15.39 DOCTOR: Estefany Mayer Interpretating Date/Time 05/14/2017 23:37:39
--- NOTE | 2017-05-14 23:49 | EKG ---
Date Performed: 05/12/2017 Time Performed: 15:39:36 PTAGE: 76 years EKG: Sinus rhythm NORMAL ECG INTERPRETATION BASED ON A DEFAULT AGE OF 40 YEARS PREVIOUS TRACING : 08/13/2015 09.12 DOCTOR: Estefany Mayer Interpretating Date/Time 05/14/2017 23:47:05
== END 2017-05-13 12:17 | disposition home or self-care (01) ==
LOC: PHED 15:35 → PHEDA 18:12 → PH3A 20:50
PROVIDERS: ADMIT Hospitalist; ATTEND Hospitalist
DX: R07.9 Chest pain, unspecified (principal); I10 Essential (primary) hypertension; E78.5 Hyperlipidemia, unspecified; K22.70 Barrett's esophagus without dysplasia; Z87.891 Personal history of nicotine dependence; Z85.07 Personal history of malignant neoplasm of pancreas; E78.00 Pure hypercholesterolemia, unspecified; K51.90 Ulcerative colitis, unspecified, without complications; F41.9 Anxiety disorder, unspecified; Z79.899 Other long term (current) drug therapy; I44.0 Atrioventricular block, first degree; R94.31 Abnormal electrocardiogram [ECG] [EKG]
CPT/HCPCS: 71046; 82550; 84484; 93005; 96374; 96376; 99285; G0378; J2270

== ENCOUNTER 2017-08-30 07:47 | Inpatient (IN) | payer MEDICARE ==
[~2017-08-30] VITALS: Ht 170.2 cm; Wt 87.0 kg
[2017-08-30] VITALS (12 sets, daily range): BP systolic 124–204; BP diastolic 58–89; PULSE 61–84; RESP 16–18; TEMP 97.5–98; O2SAT 97–100
[2017-08-30] MEDS ORDERED: PROPOFOL 200 MG/20 ML AMP IV ONE (08:00)
[2017-08-30] MEDS ORDERED: ONDANSETRON HCL 4 MG/2 ML VIAL IV PUSH ONE (08:00)
[2017-08-30] MEDS ORDERED: MORPHINE SULFATE 4 MG/ML INJ IV PUSH ONE ×2 (08:00→10:00)
--- NOTE | 2017-08-30 08:12 | PD ---
HPI . Ankle injury Chief Complaint: Injury Time Seen by Provider: 08:00 Travel History International Travel<30 days: No Contact w/Intl Traveler<30days: No Traveled to known affect area: No History of Present Illness HPI Patient presents to us by EVAC status post a left ankle injury. The injury occurred just prior to presentation. She states that she was coming down some stairs when she just lost her footing and her ankle twisted up causing her foot to twist behind her leg. Pain is exacerbated by movement but is not too bad when it is still. Patient reports an allergy to succinylcholine. She states that she was given it once before for surgery and that it took a long time for her to wake up. I suspect a cholinesterase deficiency. PFSH Past Medical History Anxiety: Yes Cancer: Yes (PANCREATIC,SPLEEN) Cardiovascular Problems: Yes (htn ) High Cholesterol: Yes Chemotherapy: Yes (05/04/17) Congestive Heart Failure: No Diabetes: No Diminished Hearing: No Endocrine: No Gastrointestinal Disorders: Yes (ULCERATIVE COLITIS, BARRETTS ESOPHAGUS) Genitourinary: No Hepatitis: No Hiatal Hernia: Yes (SMALL ) Hypertension: Yes Immune Disorder: No Musculoskeletal: Yes (DDD CERVICAL AND SHOULDERS) Neurologic: Yes (MIGRAINES, HX VERTIGO RESOLVED) Psychiatric: Yes (ANXIETY) Reproductive: No Respiratory: No Thyroid Disease: No Menopausal: Yes Past Surgical History Abdominal Surgery: Yes (UMBILICAL HERNIA) AICD: No Body Medical Devices: NONE Cardiac Surgery: No Ear Surgery: No Endocrine Surgery: Yes (REMOVED BENIGN THYROID TUMOR, pancreas r/t cancer) Eye Surgery: No Genitourinary Surgery: No Gynecologic Surgery: Yes (TL) Joint Replacement: No Oral Surgery: Yes (TONSILLECTOMY) Pacemaker: No Thoracic Surgery: No Other Surgery: Yes (BENIGN THYROID TUMOR- PARTIAL THYROID REMOVED) Social History Alcohol Use: Yes (OCCAS) Tobacco Use: No (QUIT 1993 SMOKED CIGS FOR 30 YRS) Substance Use: No Allergies-Medications (Allergen,Severity, Reaction): Coded Allergies: benzocaine (Unverified Allergy, Mild, Swelling, 05/12/17) MOST YUSUF STATES 1970 HAD SWELLING IN FACE USES LIDOCAINE WITHOUT PROBLEM NOW bupivacaine (Unverified Allergy, Mild, Swelling, 05/12/17) MOST YUSUF ethyl chloride (Unverified Allergy, Mild, Swelling, 05/12/17) MOST YUSUF ropivacaine (Unverified Allergy, Mild, Swelling, 05/12/17) MOST YUSUF succinylcholine (Unverified Adverse Reaction, Severe, 05/12/17) COULDN'T WAKE UP Reported Meds & Prescriptions Reported Meds & Active Scripts Active Zofran Odt (Ondansetron Odt) 4 Mg Tab 4 Mg SL Q6HR PRN Bentyl (Dicyclomine HCl) 10 Mg Cap 10 Mg PO TID PRN Reported Lorazepam 1 Mg Tab 1 Mg PO DAILY PRN Omeprazole 20 Mg Tab 20 Mg PO DAILY Asacol HD (Mesalamine) 800 Mg Tab 1,600 Mg PO TID Swallow whole. Take on an empty stomach. Triamterene-Hydrochlorothiazide 37.5-25 Mg Tab 1 Tab PO DAILY Labetalol (Labetalol HCl) 200 Mg Tab 200 Mg PO TID Enalapril (Enalapril Maleate) 20 Mg Tab 20 Mg PO BID Review of Systems Except as stated in HPI: all other systems reviewed are Neg Physical Exam Narrative GENERAL: Awake and alert and in no acute distress. SKIN: Warm and dry. Superficial abrasion on the dorsal aspect of the left foot. HEAD: Normocephalic/atraumatic. EYES: Pupils are equal. Extraocular movements are intact. NECK: Normal range of motion. CARDIOVASCULAR: Regular rate and rhythm. RESPIRATORY: Nonlabored respirations. MUSCULOSKELETAL: Deformity of the left ankle. She appears to have a posterior dislocation of the talus on the malleoli. She does have a good pedal pulse. The skin is not taut. NEUROLOGICAL: Nonfocal. PSYCHIATRIC: Appropriate mood and affect. Data Data Last Documented VS Vital Signs Date Time Temp Pulse Resp B/P (MAP) Pulse Ox O2 Delivery O2 Flow Rate FiO2 08/30/17 09:16 62 18 204/84 (124) 99 Nasal Cannula 2.00 08/30/17 08:03 97.5 Orders Orders ^ Saline Lock (08/30/17 08:00) Ondansetron Inj (Zofran Inj) (08/30/17 08:00) Morphine Inj (Morphine Inj) (08/30/17 08:00) Propofol 200 Mg/20 Ml Inj (Diprivan 200 (08/30/17 08:00) Consent (08/30/17 08:02) Ankle, Limited (Ap&Lat) (08/30/17 08:02) Ankle, Complete ([id number]) (08/30/17 08:02) Complete Blood Count With Diff (08/30/17 09:13) Comprehensive Metabolic Panel (08/30/17 09:13) Prothrombin Time / Inr (Pt) (08/30/17 09:13) Act Partial Throm Time (Ptt) (08/30/17 09:13) Urinalysis - C+S If Indicated (08/30/17 09:13) Iv Access Insert/Monitor (08/30/17 09:13) Ecg Monitoring (08/30/17 09:13) Oximetry (08/30/17 09:13) NPO (08/30/17 09:13) Sodium Chloride 0.9% Flush (Ns Flush) (08/30/17 09:15) Chest, Single Ap (08/30/17 09:13) Morphine Inj (Morphine Inj) (08/30/17 10:00) Admit To Inpatient (08/30/17 ) Code Status (08/30/17 10:06) Vital Signs (Adult) Q4H (08/30/17 10:06) Activity Oob With Assistance (08/30/17 10:06) Diet Npo (08/30/17 Lunch) Sodium Chloride 0.9% Flush (Ns Flush) (08/30/17 10:15) Sodium Chloride 0.9% Flush (Ns Flush) (08/30/17 21:00) Acetaminophen (Tylenol) (08/30/17 10:15) Ondansetron Inj (Zofran Inj) (08/30/17 10:15) Basic Metabolic Panel (Bmp) (08/31/17 06:00) Complete Blood Count With Diff (08/31/17 06:00) Electrocardiogram (08/30/17 10:06) Pt Request For Service (08/30/17 10:06) Scd Bilateral/Knee High LALY.BID (08/30/17 10:06) Naloxone Inj (Narcan Inj) (08/30/17 10:15) Magnesium Hydroxide Liq (Milk Of Magnesi (08/30/17 10:15) Inpatient Certification (08/30/17 ) Enalapril (Vasotec) (08/30/17 21:00) Labetalol (Trandate) (08/30/17 13:00) Lorazepam (Ativan) (08/30/17 10:15) Mesalamine Hd Dr (Asacol Hd Dr) (08/30/17 13:00) Triamterene-Hctz 37.5-25 Mg (Maxzide 37. (08/31/17 09:00) (Nf) Omeprazole (08/31/17 09:00) Enalaprilat Inj (Vasotec Inj) (08/30/17 10:15) Clonidine (Catapres) (08/30/17 10:15) Lorazepam Inj (Ativan Inj) (08/30/17 10:15) Acetamin-Hydrocod 325-5 Mg ([place] 5-325 (08/30/17 10:15) Ns + Kcl 20 Meq Inj (Ns + Kcl 20 Meq Inj (08/30/17 10:15) Admit Order (Ed Use Only) (08/30/17 10:25) Hydromorphone Pf Inj (Dilaudid Pf Inj) (08/30/17 10:15) Labs Laboratory Tests Test 08/30/17 09:15 White Blood Count 9.5 TH/MM3 Red Blood Count 4.17 MIL/MM3 Hemoglobin 12.7 GM/DL Hematocrit 37.4 % Mean Corpuscular Volume 89.6 FL Mean Corpuscular Hemoglobin 30.4 PG Mean Corpuscular Hemoglobin Concent 33.9 % Red Cell Distribution Width 14.7 % Platelet Count 454 TH/MM3 Mean Platelet Volume 9.2 FL Neutrophils (%) (Auto) 62.0 % Lymphocytes (%) (Auto) 25.6 % Monocytes (%) (Auto) 9.2 % Eosinophils (%) (Auto) 2.5 % Basophils (%) (Auto) 0.7 % Neutrophils # (Auto) 5.9 TH/MM3 Lymphocytes # (Auto) 2.4 TH/MM3 Monocytes # (Auto) 0.9 TH/MM3 Eosinophils # (Auto) 0.2 TH/MM3 Basophils # (Auto) 0.1 TH/MM3 CBC Comment DIFF FINAL Differential Comment Prothrombin Time 10.4 SEC Prothromb Time International Ratio 1.0 RATIO Activated Partial Thromboplast Time 21.5 SEC Blood Urea Nitrogen 18 MG/DL Creatinine 1.10 MG/DL Random Glucose 160 MG/DL Total Protein 7.7 GM/DL Albumin 3.6 GM/DL Calcium Level 9.5 MG/DL Alkaline Phosphatase 80 U/L Aspartate Amino Transf (AST/SGOT) 16 U/L Alanine Aminotransferase (ALT/SGPT) 21 U/L Total Bilirubin 0.5 MG/DL Sodium Level 136 MEQ/L Potassium Level 4.0 MEQ/L Chloride Level 98 MEQ/L Carbon Dioxide Level 28.6 MEQ/L Anion Gap 9 MEQ/L Estimat Glomerular Filtration Rate 48 ML/MIN MDM Medical Decision Making Medical Screen Exam Complete: Yes Emergency Medical Condition: Yes Interpretation(s) EKG shows a sinus rhythm with no ischemic changes. Differential Diagnosis Differential diagnosis of extremity trauma includes but is not limited to fracture, sprain or strain, dislocation, contusion Narrative Course This patient presents with left ankle injury. It looks like she has a fracture dislocation. An IV has been started and she will be given morphine and Zofran. Conscious sedation is planned using propofol. CBC & BMP Diagram 08/30/17 09:15 Total Protein 7.7, Albumin 3.6, Calcium Level 9.5, Alkaline Phosphatase 80, Aspartate Amino Transf (AST/SGOT) 16, Alanine Aminotransferase (ALT/SGPT) 21, Total Bilirubin 0.5 Last Impressions Ankle X-Ray 08/30/17 0802 Signed Impressions: Service Date/Time: Wednesday, August 30, 2017 08:26 - CONCLUSION: Displaced bimalleolar fracture. Juanito Arias MD Postreduction film to my interpretation shows much improved alignment. Procedures Procedure Narrative After the risks and benefits were discussed the following procedure was performed: MODERATE SEDATION: The patient was placed on a traffic monitor specialist and pulse oximetry. An ambu bag and suction were immediately available at bedside. The patient was monitored by the nurse and respiratory therapy. Oxygen saturation, end tidal CO2, heart rate and blood pressure were monitored. Procedural sedation was acheived using propofol. The patient was observed until awake and alert. Procedural Sedation time in attendance was 10 minutes. Following sedation, the left ankle was reduced with the assistance of the Orthotec. The ankle was splinted. Splint was applied by the tech under my direct supervision. Good movement and capillary refill distal to the injury following splinting. Patient reports that the splint feels comfortable. Physician Communication Physician Communication Dr. Light's PA and Dr. Ray Diagnosis Primary Impression: Trimalleolar fracture of left ankle Qualified Codes: S82.852A - Displaced trimalleolar fracture of left lower leg , initial encounter for closed fracture Admitting Information Admitting Physician Requests: Admit Condition: Stable Marcie Maria MD Aug 30, 2017 08:12
[2017-08-30] MEDS ORDERED: SODIUM CHLORIDE 0.9% FLUSH 10 ML FLUSH IV FLUSH PRN ×2 (09:15→10:15)
--- NOTE | 2017-08-30 09:17 | RADRPT ---
EXAM DATE/TIME: 08/30/2017 08:26 [facility] COMPARISON: No previous studies available for comparison. INDICATIONS : Left ankle rolling/fall injury. Pain and swelling as well as obvious deformity. MEDICAL HISTORY : Ulcerative colitis. Hernia, hiatal. Hypertension. Fernando's esophagus. SURGICAL HISTORY : Umbilical hernia repair. Tubal ligation. ENCOUNTER: Initial ACUITY: 1 day PAIN SCORE: 10/10 LOCATION: Left ankle FINDINGS: A standard 3 view examination of the left ankle was obtained and demonstrates a displaced left ankle fracture with oblique fracture through the distal fibula and transverse fracture through the medial m alleolus at the level the ankle mortise. The talus is displaced laterally approximately 1.7 cm and valdes s approximately 45 of lateral angulation. The talus is otherwise intact. The distal fibular fracture is displaced laterally and the medial malleolar fracture fragment is displaced approximately distall y 2 cm. There is mild posterior displacement of the talus as well measuring up to approximately 8 mm. There is extensive soft tissue swelling. There is mild osteopenia. CONCLUSION: Displaced bimalleolar fracture. Juanito Arias MD on August 30, 2017 at 9:12 Board Certified Radiologist. This report was verified electronically.
[2017-08-30 09:33] LABS: AUTOMATED NEUTROPHIL # 5.9 TH/MM3 (1.8-7.7); BASOPHIL # 0.1 TH/MM3 (0-0.2); BASOPHIL % 0.7 % (0.0-2.0); EOSINOPHIL # 0.2 TH/MM3 (0-0.4); EOSINOPHIL % 2.5 % (0.0-4.0); HEMATOCRIT 37.4 % (35.0-46.0); HEMOGLOBIN 12.7 GM/DL (11.6-15.3); LYMPH % 25.6 % (9.0-44.0); LYMPHOCYTE # 2.4 TH/MM3 (1.0-4.8); MEAN CELL VOLUME 89.6 FL (80.0-100.0); MEAN CORPUSCULAR HEMOGLOBIN 30.4 PG (27.0-34.0); MEAN CORPUSCULAR HGB CONC 33.9 % (32.0-36.0); MEAN PLATELET VOLUME 9.2 FL (7.0-11.0); MONO % 9.2 % (0.0-8.0); MONOCYTE # 0.9 TH/MM3 (0-0.9); PLATELET COUNT 454 TH/MM3 (150-450); RED BLOOD COUNT 4.17 MIL/MM3 (4.00-5.30); RED CELL DISTRIBUTION WIDTH 14.7 % (11.6-17.2); WHITE BLOOD COUNT 9.5 TH/MM3 (4.0-11.0)
[2017-08-30 09:39] LABS: PROTHROMBIN TIME - PATIENT 10.4 SEC (9.8-11.6)
[2017-08-30 09:43] LABS: ALBUMIN 3.6 GM/DL (3.4-5.0); BICARBONATE 28.6 MEQ/L (21.0-32.0); BLOOD UREA NITROGEN 18 MG/DL (7-18); CALCIUM 9.5 MG/DL (8.5-10.1); CHLORIDE 98 MEQ/L (98-107); GLOMERULAR FILTRATION RATE 48 ML/MIN (>89); GLUCOSE,RANDOM 160 MG/DL (74-106); SODIUM (NA) 136 MEQ/L (136-145)
[2017-08-30 09:44] LABS: ALT (GPT) 21 U/L (10-53); AST (GOT) 16 U/L (15-37)
[2017-08-30 09:47] LABS: ALKALINE PHOSPHATASE 80 U/L (45-117); TOTAL BILIRUBIN ADULT 0.5 MG/DL (0.2-1.0); TOTAL PROTEIN 7.7 GM/DL (6.4-8.2)
[2017-08-30] MEDS ORDERED: LORazepam 1 MG TAB PO PRN (10:15)
[2017-08-30] MEDS ORDERED: NALOXONE HCL 0.4 MG/ML AMP IV PUSH PRN (10:15)
[2017-08-30] MEDS ORDERED: ONDANSETRON HCL 4 MG/2 ML VIAL IVP PRN (10:15)
[2017-08-30] MEDS ORDERED: ACETAMINOPHEN 325 MG TAB PO PRN (10:15)
[2017-08-30] MEDS ORDERED: LORazepam 2 MG/ML VIAL IV PUSH PRN (10:15)
--- NOTE | 2017-08-30 10:20 | HHI.HP ---
HPI Service [facility] Hospitalists Primary Care Physician Myron Plasencia Jr, MD Admission Diagnosis Chief Complaint: left ankle pain following mechanical fall Travel History International Travel<30 Days: No Contact w/Intl Traveler <30 Da: No Traveled to Known Affected Are: No History of Present Illness Patient's records have been reviewed in the [facility] EHR and [facility]. Pt was interviewed in the ER and her [id number] gave supporting details. Patient is a pleasant 77-year-old female with history of pancreatic cancer, s/p surgical resection and chemotherapy. Patient also has COPD and hypertension. While walking downstairs this morning patient had a mechanical fall and slipped down the stairs on her buttocks. Patient noted immediate pain into her left ankle and inability to bear weight on the left lower extremity. X-ray (08/30/17) of the left ankle shows bimalleolar fracture. Pt is NPO and will go to the OR with Dr. Lonnie Light for surgical repair. Patient admitted to [facility] for further evaluation and treatment. Review of Systems Constitutional: DENIES: Diaphoretic episodes, Fatigue, Fever, Weight gain, Weight loss, Chills, Dizziness, Change in appetite, Night Sweats Endocrine: DENIES: Heat/cold intolerance, Polydipsia, Polyuria, Polyphagia Eyes: DENIES: Blurred vision, Diplopia, Eye inflammation, Eye pain, Vision loss , Photosensitivity, Double Vision Ears, nose, mouth, throat: DENIES: Tinnitus, Hearing loss, Vertigo, Nasal discharge, Oral lesions, Throat pain, Hoarseness, Ear Pain, Running Nose, Epistaxis, Sinus Pain, Toothache, Odynophagia Respiratory: DENIES: Apneas, Cough, Snoring, Wheezing, Hemoptysis, Sputum production, Shortness of breath Cardiovascular: DENIES: Chest pain, Palpitations, Syncope, Dyspnea on Exertion , PND, Lower Extremity Edema, Orthopnea, Claudication Gastrointestinal: DENIES: Abdominal pain, Black stools, Bloody stools, BRB per rectum, Constipation, Diarrhea, GERD, Nausea, Reflux, Vomiting, Difficulty Swallowing, Anorexia Genitourinary: COMPLAINS OF: Dysmenorrhea, DENIES: Urinary frequency, Urinary incontinence, Urgency, Hematuria, Dysuria, Nocturia Musculoskeletal: COMPLAINS OF: Joint pain, DENIES: Muscle aches, Stiffness, Joint Swelling, Back pain, Neck pain Integumentary: DENIES: Abnormal pigmentation, Pruritus, Rash, Nail changes, Breast masses, Breast skin changes, Nipple discharge Hematologic/lymphatic: DENIES: Bruising, Lymphadenopathy Immunologic/allergic: DENIES: Eczema, Urticaria Neurologic: COMPLAINS OF: Abnormal gait, DENIES: Headache, Localized weakness, Paresthesias, Seizures, Speech Problems, Tremor, Poor Balance Psychiatric: DENIES: Anxiety, Confusion, Mood changes, Depression, Hallucinations, Agitation, Suicidal Ideation, Homicidal Ideation, Delusions, History of Bipolar, History of Schizophrenia Past Family Social History Past Medical History 1) pancreatic cancer - Patient underwent distal pancreatectomy and splenectomy at the [facility] (01/22/17) - Patient was found to have a 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 - T3, N0, M0, G3 - Patient completed chemotherapy with gemcitabine February 2017. - Patient follows at the [facility] in [place], and with Dr. Ishan Selby locally. 2) COPD 4) diverticulosis 5) GERD 6) gallstones 7) hypertension -Patient requires multiple medications including labetalol 200 mg p.o. 3 times daily 8) osteoarthritis 9) osteopenia 10) ulcerative colitis in 1993 11) thyroid disease Past Surgical History 1) distal pancreatectomy and splenectomy in 2016 -Performed by Dr. Pearson at the [facility] in [place] 2) pancreatic biopsy 2016 3) cholecystectomy [place] [address] Yash Kinsey 4) colonoscopy/EGD 5) umbilical hernia repair 6) tonsillectomy 7) tubal ligation Reported Medications Reported Meds & Active Scripts Active Zofran Odt (Ondansetron Odt) 4 Mg Tab 4 Mg SL Q6HR PRN Bentyl (Dicyclomine HCl) 10 Mg Cap 10 Mg PO TID PRN Reported Lorazepam 1 Mg Tab 1 Mg PO DAILY PRN Omeprazole 20 Mg Tab 20 Mg PO DAILY Asacol HD (Mesalamine) 800 Mg Tab 1,600 Mg PO TID Swallow whole. Take on an empty stomach. Triamterene-Hydrochlorothiazide 37.5-25 Mg Tab 1 Tab PO DAILY Labetalol (Labetalol HCl) 200 Mg Tab 200 Mg PO TID Enalapril (Enalapril Maleate) 20 Mg Tab 20 Mg PO BID Allergies: Coded Allergies: benzocaine (Unverified Allergy, Mild, Swelling, 1/3/18) MOST YUSUF STATES 1970 HAD SWELLING IN FACE USES LIDOCAINE WITHOUT PROBLEM NOW bupivacaine (Unverified Allergy, Mild, Swelling, 05/12/17) MOST YUSUF ethyl chloride (Unverified Allergy, Mild, Swelling, 05/12/17) MOST YUSUF ropivacaine (Unverified Allergy, Mild, Swelling, 05/12/17) MOST YUSUF succinylcholine (Unverified Adverse Reaction, Severe, 05/12/17) COULDN'T WAKE UP Family History Noncontributory Social History -Retired educator -Son and lcutjhub-nu-rpy live locally. Patient states that she has a lot of family support. -Former smoker -No alcohol use -No illicit street drugs Physical Exam Vital Signs Vital Signs Date Time Temp Pulse Resp B/P (MAP) Pulse Ox O2 Delivery O2 Flow Rate FiO2 08/30/17 09:16 62 18 204/84 (124) 99 Nasal Cannula 2.00 08/30/17 09:15 18 99 Nasal Cannula 2.00 08/30/17 09:00 98 2.00 08/30/17 08:13 61 18 100 Room Air 08/30/17 08:03 97.5 61 18 176/74 (108) 100 Room Air Physical Exam GENERAL: This is a well-nourished, well-developed patient, in no apparent distress. SKIN: No rashes, ecchymoses or lesions. Cool and dry. HEAD: Atraumatic. Normocephalic. No temporal or scalp tenderness. EYES: Pupils equal round and reactive. Extraocular motions intact. No scleral icterus. No injection or drainage. ENT: Nose without bleeding, purulent drainage or septal hematoma. Throat without erythema, tonsillar hypertrophy or exudate. Uvula midline. Airway patent. NECK: Trachea midline. No JVD or lymphadenopathy. Supple, nontender, no meningeal signs. CARDIOVASCULAR: Regular rate and rhythm without murmurs, gallops, or rubs. RESPIRATORY: Clear to auscultation. Breath sounds equal bilaterally. No wheezes , rales, or rhonchi. GASTROINTESTINAL: Abdomen soft, non-tender, nondistended. No hepato-splenomegaly , or palpable masses. No guarding. MUSCULOSKELETAL: Extremities without clubbing, cyanosis, or edema. No joint tenderness, effusion, or edema noted. No calf tenderness. Negative Homans sign bilaterally. NEUROLOGICAL: Awake and alert. Cranial nerves II through XII intact. Motor and sensory grossly within normal limits. Five out of 5 muscle strength in all muscle groups. Normal speech. Laboratory Laboratory Tests Test 08/30/17 09:15 White Blood Count 9.5 Red Blood Count 4.17 Hemoglobin 12.7 Hematocrit 37.4 Mean Corpuscular Volume 89.6 Mean Corpuscular Hemoglobin 30.4 Mean Corpuscular Hemoglobin Concent 33.9 Red Cell Distribution Width 14.7 Platelet Count 454 Mean Platelet Volume 9.2 Neutrophils (%) (Auto) 62.0 Lymphocytes (%) (Auto) 25.6 Monocytes (%) (Auto) 9.2 Eosinophils (%) (Auto) 2.5 Basophils (%) (Auto) 0.7 Neutrophils # (Auto) 5.9 Lymphocytes # (Auto) 2.4 Monocytes # (Auto) 0.9 Eosinophils # (Auto) 0.2 Basophils # (Auto) 0.1 CBC Comment DIFF FINAL Differential Comment Prothrombin Time 10.4 Prothromb Time International Ratio 1.0 Activated Partial Thromboplast Time 21.5 Blood Urea Nitrogen 18 Creatinine 1.10 Random Glucose 160 Total Protein 7.7 Albumin 3.6 Calcium Level 9.5 Alkaline Phosphatase 80 Aspartate Amino Transf (AST/SGOT) 16 Alanine Aminotransferase (ALT/SGPT) 21 Total Bilirubin 0.5 Sodium Level 136 Potassium Level 4.0 Chloride Level 98 Carbon Dioxide Level 28.6 Anion Gap 9 Estimat Glomerular Filtration Rate 48 Result Diagram: 08/30/1715 08/30/17914 Imaging Last Impressions Chest X-Ray 08/30/17912 Signed Impressions: Service Date/Time: Wednesday, August 30, 2017 09:59 - CONCLUSION: Minimal left basilar atelectasis. Telly Kilpatrick MD Ankle X-Ray 08/30/17801 Signed Impressions: Service Date/Time: Wednesday, August 30, 2017 08:26 - CONCLUSION: Displaced bimalleolar fracture. MD Anatoliy Molina VTE Risk Assessment Anatoliy VTE Risk Assessment: Mod/High Risk (score >= 2) Caprini Risk Assessment Model Point Value = 1 Point Value = 2 Point Value = 3 Point Value = 5 Age 41-60 Minor surgery BMI > 25 kg/m2 Swollen legs Varicose veins or History of unexplained or recurrent spontaneous Oral contraceptives or hormone replacement Sepsis (< 1 month) Serious lung disease, including pneumonia (< 1 month) Abnormal pulmonary function Acute myocardial infarction Congestive heart failure (< 1 month) History of inflammatory bowel disease Medical patient at bed rest Age 61-74 Arthroscopic surgery Major open surgery (> 45 min) Laparoscopic surgery (> 45 min) Malignancy Confined to bed (> 72 hours) Immobilizing plaster cast Central venous access Age >= 75 History of VTE Family history of VTE Factor V Leiden Prothrombin [id number] Lupus anticoagulant Anticardiolipin antibodies Elevated serum homocysteine Heparin-induced thrombocytopenia Other congenital or acquired thrombophilia Stroke (< 1 month) Elective arthroplasty Hip, pelvis, or leg fracture Acute spinal cord injury (< 1 month) Prophylaxis Regimen Total Risk Factor Score Risk Level Prophylaxis Regimen 0-1 Low Early ambulation 2 Moderate Order ONE of the following: *Sequential Compression Device (SCD) *Heparin 5000 units SQ BID 3-4 Higher Order ONE of the following medications: *Heparin 5000 units SQ TID *Enoxaparin/Lovenox 40 mg SQ daily (WT < 150 kg, CrCl > 30 mL/min) *Enoxaparin/Lovenox 30 mg SQ daily (WT < 150 kg, CrCl > 10-29 mL/min) *Enoxaparin/Lovenox 30 mg SQ BID (WT < 150 kg, CrCl > 30 mL/min) AND/OR *Sequential Compression Device (SCD) 5 or more Highest Order ONE of the following medications: *Heparin 5000 units SQ TID (Preferred with Epidurals) *Enoxaparin/Lovenox 40 mg SQ daily (WT < 150 kg, CrCl > 30 mL/min) *Enoxaparin/Lovenox 30 mg SQ daily (WT < 150 kg, CrCl > 10-29 mL/min) *Enoxaparin/Lovenox 30 mg SQ BID (WT < 150 kg, CrCl > 30 mL/min) AND *Sequential Compression Device (SCD) Assessment and Plan Problem List: (1) Trimalleolar fracture of left ankle ICD Codes: S82.852A - Displaced trimalleolar fracture of left lower leg, initial encounter for closed fracture Status: Acute Plan: - While walking downstairs (08/30/17) at home patient had a mechanical fall and slipped down the stairs on her buttocks. - Patient noted immediate pain into her left ankle and inability to bear weight on the left lower extremity. - X-ray (08/30/17) of the left ankle shows bimalleolar fracture. - Pt is NPO and will go to the OR with Dr. Lonnie Light for surgical repair. - norco/dilaudid prn pain - DVT prophylaxis - supportive care - pt may need SNF upon discharge. 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 - T3, N0, M0, G3 - Patient completed chemotherapy with gemcitabine February 2017. - Patient follows at the [facility] in [place], and with Dr. Ishan Selby locally. - Pt had f/u apointment for this week at [facility] - Will let Dr. Selby know pt is hospitalized, but does NOT need Oncology consult at this time. (4) COPD (chronic obstructive pulmonary disease) ICD Codes: J44.9 - Chronic obstructive pulmonary disease, unspecified Status: Chronic Plan: - former smoker - ducy prn Physician Certification 2 Midnight Certification Type: Admission for Inpatient Services Order for Inpatient Services The services are ordered in accordance with Medicare regulations or non- Medicare payer requirements, as applicable. In the case of services not specified as inpatient-only, they are appropriately provided as inpatient services in accordance with the 2-midnight benchmark. Estimated LOS (days): 3 3 days is the estimated time the patient will need to remain in the hospital, assuming treatment plan goals are met and no additional complications. Post-Hospital Plan: Not yet determined Problem Qualifiers (1) Trimalleolar fracture of left ankle: Qualified Codes: S82.852A - Displaced trimalleolar fracture of left lower leg, initial encounter for closed fracture (2) HTN (hypertension): Qualified Codes: I10 - Essential (primary) hypertension (3) Pancreatic cancer: Qualified Codes: C25.2 - Malignant neoplasm of tail of pancreas (4) COPD (chronic obstructive pulmonary disease): Qualified Codes: J44.9 - Chronic obstructive pulmonary disease, unspecified Ruben Ray DO Aug 30, 2017 10:20
--- NOTE | 2017-08-30 10:46 | RADRPT ---
EXAM DATE/TIME: 08/30/2017 09:59 [facility] COMPARISON: CHEST SINGLE AP, August 13, 2015, 9:48. INDICATIONS : Evaluate for pneumonia, pneumothorax, and communicable disease. Preop for left ankle fracture repair. MEDICAL HISTORY : Ulcerative colitis. Hernia, hiatal. Hypertension. Fernando's esophagus. SURGICAL HISTORY : Umbilical hernia repair. Tubal ligation. ENCOUNTER: Initial ACUITY: 1 day PAIN SCORE: 8/10 LOCATION: Left ankle FINDINGS: A single view of the chest demonstrates the lungs to be symmetrically aerated without evidence of mas s, infiltrate or effusion. Minimal left basilar atelectasis is noted. The cardiomediastinal contours are unremarkable. Osseous structures are intact. Right internal jugular Fzyldj-u-[id number] has its tip i n the right atrium. No pneumothorax is noted. CONCLUSION: Minimal left basilar atelectasis. Telly Kilpatrick MD on August 30, 2017 at 10:43 Board Certified Radiologist. This report was verified electronically.
--- NOTE | 2017-08-30 10:51 | RADRPT ---
EXAM DATE/TIME: 08/30/2017 09:49 [facility] COMPARISON: ANKLE LEFT COMPLETE ([id number]), August 30, 2017, 8:26. INDICATIONS : Post-reduction left ankle fracture dislocation.. MEDICAL HISTORY : Ulcerative colitis. Hernia, hiatal. Hypertension. Fernando's esophagus. SURGICAL HISTORY : Umbilical hernia repair. Tubal ligation. ENCOUNTER: Initial ACUITY: 1 day PAIN SCORE: 8/10 LOCATION: Left ankle FINDINGS: AP and lateral views of the left ankle were obtained and demonstrate partial reduction of the left an kle fracture dislocation. There is mild residual lateral displacement of the talus with respect to th e tibia with widening of the medial ankle mortise anteriorly, superiorly and medially. The fibular fr acture is now mildly distracted approximately 6-7 mm and the previously noted angulation has been red uced. The distal medial malleolar fracture fragment is now displaced approximately 6 mm. There is dif fuse soft tissue swelling. The final bony detail is obscured by overlying casting material. CONCLUSION: Postreduction study as described. Juanito Arias MD on August 30, 2017 at 10:46 Board Certified Radiologist. This report was verified electronically.
[2017-08-30] MEDS ORDERED: hydrALAZINE HCL 20 MG/ML VIAL IV PUSH PRN (11:15)
[2017-08-30] MEDS: ENALAPRILAT 1.25 MG/ML VIAL IV PRN (11:54)
[2017-08-30] MEDS: NS + KCL 20 MEQ INJ 1,000 ML IV SCH (11:54)
[2017-08-30] MEDS: MESALAMINE HD 800 MG DELAYED RELEASE TAB PO SCH ×2 (11:55→18:00)
[2017-08-30] MEDS ORDERED: RESP: ALBUTEROL 2.5 MG/IPRATROPIUM 0.5 MG NEB (PRN) NEB (12:15)
[2017-08-30] MEDS: HYDROmorphone HCL PF 2 MG/ML VIAL IV PUSH PRN ×2 (13:21→17:31)
[2017-08-30] MEDS: LABETALOL HCL 200 MG TAB PO SCH ×2 (13:30→18:26)
[2017-08-30] MEDS: cloNIDine HCL 0.2 MG TAB PO PRN (15:38)
[2017-08-30] MEDS: SODIUM CHLORIDE 0.9% FLUSH 10 ML FLUSH IV FLUSH SCH (20:38)
[2017-08-30] MEDS: ENALAPRIL MALEATE 10 MG TAB PO SCH (20:40)
[2017-08-30] MEDS: ACETAMINOPHEN/HYDROcodone 325 MG/5 MG TAB PO PRN (20:41)
[2017-08-30] MEDS ORDERED: LACTATED RINGER'S 1000 ML IV PRN (21:00)
[2017-08-30] MEDS ORDERED: POVIDONE IODINE 5% (ANTISEPSIS KIT) 4 APPLICATIONS EACH NARE PRN (21:00)
[2017-08-30] MEDS ORDERED: SODIUM CHLORID 0.9% 500 ML IV PRN (21:00)
[2017-08-30] MEDS ORDERED: CHLORHEXIDINE GLUCONATE 2 % 1 PACK (2 CLOTHS) TOPICAL PRN (21:00)
--- NOTE | 2017-08-30 21:01 | EKG ---
Date Performed: 08/30/2017 Time Performed: 08:04:59 PTAGE: 77 years EKG: Sinus rhythm WITH FIRST DEGREE AV BLOCK ABNORMAL ECG NO PREVIOUS TRACING DOCTOR: Mayito Roth Interpretating Date/Time 08/30/2017 20:59:30
[2017-08-30 21:08] LABS: BILIRUBIN, URINE NEG (NEG); BLOOD, URINE NEG (NEG); GLUCOSE,URINE NEG (NEG); KETONE, URINE NEG (NEG); NITRITE,URINE NEG (NEG); SQUAMOUS EPITHELIAL CELL URINE 4 /hpf (0-5); URINE COLOR YELLOW (YELLW/STRAW); URINE LEUKOCYTE ESTERASE NEG (NEG)
[2017-08-31] VITALS (7 sets, daily range): BP systolic 129–189; BP diastolic 62–79; PULSE 68–79; RESP 17–20; TEMP 97.7–98.8; O2SAT 93–98
[2017-08-31] MEDS: NS + KCL 20 MEQ INJ 1,000 ML IV SCH ×3 (00:14→20:44)
[2017-08-31] MEDS: ACETAMINOPHEN/HYDROcodone 325 MG/5 MG TAB PO PRN ×4 (03:11→20:43)
[2017-08-31 05:12] LABS: AUTOMATED NEUTROPHIL # 3.6 TH/MM3 (1.8-7.7); BASOPHIL % 0.5 % (0.0-2.0); EOSINOPHIL # 0.1 TH/MM3 (0-0.4); EOSINOPHIL % 1.9 % (0.0-4.0); HEMATOCRIT 32.3 % (35.0-46.0); HEMOGLOBIN 10.8 GM/DL (11.6-15.3); LYMPH % 33.1 % (9.0-44.0); LYMPHOCYTE # 2.5 TH/MM3 (1.0-4.8); MEAN CELL VOLUME 89.9 FL (80.0-100.0); MEAN CORPUSCULAR HGB CONC 33.4 % (32.0-36.0); MEAN PLATELET VOLUME 8.7 FL (7.0-11.0); MONO % 15.9 % (0.0-8.0); MONOCYTE # 1.2 TH/MM3 (0-0.9); NEUT % 48.6 % (16.0-70.0); PLATELET COUNT 383 TH/MM3 (150-450); RED BLOOD COUNT 3.59 MIL/MM3 (4.00-5.30); RED CELL DISTRIBUTION WIDTH 14.7 % (11.6-17.2); WHITE BLOOD COUNT 7.4 TH/MM3 (4.0-11.0)
[2017-08-31 05:29] LABS: BICARBONATE 29.2 MEQ/L (21.0-32.0); CALCIUM 8.1 MG/DL (8.5-10.1); CREATININE 0.8 MG/DL (0.50-1.00)
--- NOTE | 2017-08-31 06:46 | PD.ORT.PN ---
Subjective Subjective Remarks Fall yesterday when going down the stairs. She rolled her left ankle and landed down on the stair but did not fall down the stairs Objective Vitals Vital Signs Date Time Temp Pulse Resp B/P (MAP) Pulse Ox O2 Delivery O2 Flow Rate FiO2 08/31/17 04:55 97.8 75 17 134/62 (86) 96 08/31/17 00:44 98 Nasal Cannula 2.00 08/30/17 20:40 98.0 72 18 128/78 (95) 97 08/30/17 18:45 97.6 68 16 164/71 (102) 100 08/30/17 17:34 84 18 161/70 (100) 98 Room Air 08/30/17 16:04 76 18 165/89 (114) 98 Room Air 08/30/17 15:31 66 18 184/80 (114) 99 Room Air 08/30/17 13:13 66 18 151/78 (102) 98 Room Air 08/30/17 11:58 64 18 176/76 (109) 98 Nasal Cannula 2.00 08/30/17 09:16 62 18 204/84 (124) 99 Nasal Cannula 2.00 08/30/17 09:15 18 99 Nasal Cannula 2.00 08/30/17 09:00 98 2.00 08/30/17 08:13 61 18 100 Room Air 08/30/17 08:03 97.5 61 18 176/74 (108) 100 Room Air Result Diagram: 08/31/17 0425 08/31/17 0425 Other Results Laboratory Tests Test 08/30/17 09:15 Prothromb Time International Ratio 1.0 RATIO Prothrombin Time 10.4 SEC (9.8-11.6) Imaging Last 24 hours Impressions Chest X-Ray 08/30/17912 Signed Impressions: Service Date/Time: Wednesday, August 30, 2017 09:59 - CONCLUSION: Minimal left basilar atelectasis. Telly Kilpatrick MD Ankle X-Ray 08/30/17801 Signed Impressions: Service Date/Time: Wednesday, August 30, 2017 08:26 - CONCLUSION: Displaced bimalleolar fracture. Juanito Arias MD Ankle X-Ray 08/30/17801 Signed Impressions: Service Date/Time: Wednesday, August 30, 2017 09:49 - CONCLUSION: Postreduction study as described. Juanito Arias MD Objective Remarks Bilateral upper extremities: Full range of motion neurovascularly intact right lower extremity: Full range of motion neurovascularly intact Left lower extremity: No pain with hip or knee range of motion. Splint intact. She has intact sensation in her toes with good capillary refills. She is able to move her toes but guarded due to pain Assessment & Plan Assessment and Plan Left bimalleolar ankle fracture dislocation N.p.o. Maintain splint elevation Surgery late this morning early afternoon for open reduction internal fixation versus external fixation of swelling is too great Juanito Reina Jr. Aug 31, 2017 06:46
[2017-08-31] MEDS ORDERED: WALKER/ADULT/FO1 MIS (07:01)
[2017-08-31] MEDS ORDERED: HYDR-3580 PO (07:01)
[2017-08-31] MEDS: PANTOPRAZOLE SOD 20 MG DELAYED RELEASE TAB PO SCH (07:14)
[2017-08-31] MEDS: MESALAMINE HD 800 MG DELAYED RELEASE TAB PO SCH ×4 (07:14→16:43)
[2017-08-31] MEDS: SODIUM CHLORIDE 0.9% FLUSH 10 ML FLUSH IV FLUSH SCH ×2 (08:00→20:44)
[2017-08-31] MEDS: LABETALOL HCL 200 MG TAB PO SCH ×3 (08:01→16:37)
[2017-08-31] MEDS: ENALAPRIL MALEATE 10 MG TAB PO SCH ×2 (08:01→20:42)
[2017-08-31] MEDS: TRIAMTERENE/HCTZ 37.5 MG/25 MG TAB PO SCH (08:01)
--- NOTE | 2017-08-31 08:38 | MB ---
cc: Lonnie Light MD DATE: 08/31/2017 CHIEF COMPLAINT: Left ankle fracture dislocation CONSULTING PHYSICIAN: Dr. Ray. HISTORY OF PRESENT ILLNESS: Mrs. Kidd is a pleasant 77-year-old female who had a fall. She slipped going down steps. She landed on her buttocks, but did twist her ankle. She noticed ankle deformity and was unable to stand or ambulate. She presented to the Emergency Room where x-rays revealed a left ankle fracture dislocation. She underwent closed reduction in the emergency department. Currently, her only complaint is her left ankle. She denies dizziness, syncope or loss of consciousness. Pain is worse with movement. PAST MEDICAL HISTORY: Illnesses: History of pancreatic cancer, COPD, diverticulitis, reflux, hypertension, osteopenia, ulcerative colitis. Surgeries: Pancreatectomy and splenectomy, cholecystectomy, colonoscopy, hernia repair, tonsillectomy, tubal ligation. MEDICATIONS: Include: 1. Lorazepam. 2. Omeprazole. 3. Asacol. 4. Hydrochlorothiazide. 5. Triamterene. 6. Labetalol. 7. Enalapril. ALLERGIES: BENZOCAINE, ROPIVACAINE, SUCCINYLCHOLINE. FAMILY HISTORY: Noncontributory. SOCIAL HISTORY: The patient is a retired teacher. She does not currently smoke. She denies alcohol or drug use. REVIEW OF SYSTEMS: The patient denies headache, visual changes, neck pain, chest pain, shortness of breath, abdominal pain, nausea, vomiting, recent weight loss, fevers or chills or numbness or tingling of extremities. She complains of left ankle pain. The pain is worse with movement. LABORATORY DATA: Patient has a white blood cell count of 7.4, hematocrit of 32, platelet count 383. INR is 1.0. BUN 16 and creatinine is 0.80. X-RAYS: X-ray of the left ankle were reviewed. X-rays reveal a left ankle bimalleolar fracture with dislocation. Post-reduction x-rays revealed significant improvement of x-rays. PHYSICAL EXAMINATION: GENERAL: The patient is a pleasant 77-year-old female. She is awake and alert. She is alert and oriented x 3. She is in no acute distress. VITAL SIGNS: Temperature 97.8, pulse 75, respirations 17, blood pressure 134/62, O2 saturation 96% on 2 liters nasal cannula. HEENT: Head, the patient is normocephalic. Pupils are equal. NECK: Soft, nontender. The trachea is in the midline. ABDOMEN: Soft, nontender, nondistended. EXTREMITIES: Examination of the bilateral upper extremities reveals no pain with shoulder, elbow and wrist motion. She has intact sensation all fingers. She has good cap refill in all fingers. Skin is intact. Radial pulses are palpable. Examination of the right leg reveals no pain with hip, knee or ankle motion. Skin is intact. Dorsalis pedis pulse palpable. Sensation is intact. Examination of the left leg reveals no pain with hip or knee motion. She is in a well-padded splint. She has good cap refill in her toes. Sensation is intact in her foot. She has pain with ankle motion. IMPRESSIONS: 1. Left ankle bimalleolar fracture dislocation. 2. Hypertension. 3. History of pancreatic cancer. 4. Osteoporosis. PLAN: The treatment options were discussed with the patient. At this point, I would recommend open reduction internal fixation of left ankle. Fracture appears to be unstable. If patient has excessive swelling, she may need a staged procedure with temporary external fixation followed by open reduction and internal fixation once swelling has subsided. Risks of surgery include bleeding, infection, injuries to arteries, nerves and blood vessels, nonunion, malunion, painful hardware, wound complications, as well as medical complications including blood clot, stroke, heart attack and . All questions were answered. I would recommend she continue taking calcium and vitamin D to help promote bone healing. She will need continued medical management for her hypertension. All questions were answered. A mid-level provider in my office, nurse practitioner or PA, may see this patient on a follow-up basis and continue to implement the objective of this plan including: Starting or adjusting medications, injections of muscle, tendon, bursa or joints, cast application, orthotic or brace application, physical therapy, further radiographic studies including x-ray, MRI, CT, ultrasounds or bone scan, vascular studies, neurologic studies, or other specialist consultations, and proceeding with surgical management as appropriate. Lonnie MD SUZAN Varghese/KRISTINE , 07:12 AM , 08:37 AM
[2017-08-31] MEDS ORDERED: LIDOCAINE HCL 1% PF 5 ML SYRINGE OTHER ONE (12:00)
[2017-08-31] MEDS ORDERED: PROPOFOL 200 MG/20 ML AMP IV ONE (12:00)
[2017-08-31] MEDS ORDERED: ePHEDrine/NS 25 MG/5 ML SYRINGE IV ONE (12:00)
[2017-08-31] MEDS ORDERED: PHENYLEPH/NS 1000 MCG/10 ML SYR IV ONE (12:00)
[2017-08-31] MEDS ORDERED: ONDANSETRON HCL 4 MG/2 ML VIAL IV ONE (12:00)
[2017-08-31] MEDS ORDERED: DEXAMETHASONE SOD PHOS 4 MG/ML VIAL IV ONE (12:00)
[2017-08-31] MEDS ORDERED: KETOROLAC TROMETHAMINE 30 MG/ML (IVP) VIAL IV PUSH ONE (12:00)
[2017-08-31] MEDS ORDERED: VANCOMYCIN HCL 1000 MG VIAL ONE (12:06)
[2017-08-31] MEDS ORDERED: GENTAMICIN SULFATE 80 MG/2 ML VIAL ONE (12:06)
[2017-08-31] MEDS ORDERED: ceFAZolin INJ 1,000 MG VIAL ONE (12:06)
[2017-08-31] MEDS ORDERED: HYDROmorphone HCL PF 0.5 MG/0.5 ML SYRINGE IV PUSH PRN (12:15)
--- NOTE | 2017-08-31 13:06 | PD.OP ---
cc: Lonnie Souza MD Operative Report Date of Surgery: Aug 31, 2017 Preoperative Diagnosis: Displaced left ankle bimalleolar fracture/ dislocation Postoperative Diagnosis: Procedure: Open reduction internal fixation left ankle bimalleolar fracture, stress exam of syndesmosis Anesthesia: General Surgeon: Lonnie Souza Training Consultant(s): DENISSE Garcia PA-C The surgical procedure was assisted by my physician litigation legal assistant. My P.A. presence was necessary throughout this case for the manipulation and positioning of the surgical extremity. My P.A. was assisting me throughout the duration of this procedure. The skill set of a physician litigation legal assistant was medically necessary to complete this procedure. During the surgical case the surgical attendant was working at the back table and the physician litigation legal assistant was directly assisting me. Operation and Findings: Implants used : ITS Plan of activity: Nonweightbearing Details of procedure: Patient was seen and evaluated preoperatively and found to have a displaced ankle fracture. Informed consent was obtained after a detailed discussion of risk and benefits of surgery. The operative site was marked. Patient was brought to the OR, placed on the OR table, and given IV sedation and general endotracheal anesthesia. IV antibiotics were given preoperatively. A timeout procedure was performed. The operative leg was prepped with alcohol followed by Hibiclens and draped in the usual sterile fashion. Attention was turned towards the distal fibula. A four-inch incision was made over the distal fibula. The subcutaneous tissue was dissected with Bovie. The fracture site was visualized. The fracture site was cleaned with curets. The fracture was now reduced. The fracture keyed into anatomic alignment. K-wires were used to h old provisional fixation. A 2.7 mm lag screw was placed to compress fracture. A plate was selected and contoured to fit the distal fibula. The plate was provisionally held to bone with K-wires. 3.5 cortical screws were used to compress the plate to bone. Multiple screws were placed above and below the fracture. Next attention was turned towards the medial malleolus. The medial malleolus supposed through a 3 cm incision. Saphenous vein was retracted. Fracture was visualized. Fracture was cleaned with curettes. Fracture was now reduced and keyed into anatomic alignment. K wires were used to hold provisional fixation. 2 guidepins for the 4.0 cannulated screws were placed in a retrograde fashion across the fracture. Fluoroscopy was used to confirm guidepin placement. Cannulated drill was placed over the guidepin. 2 appropriate length screws were now placed. Good compression was applied. Fluoroscopy confirmed well aligned fracture with well-placed hardware. Next, attention was turned to the syndesmosis. The syndesmosis was stressed. There was no widening of the syndesmosis with external rotation of the ankle. Incisions were thoroughly irrigated. The subcutaneous tissue was closed with 3- 0 Vicryl and the skin was closed with 3-0 nylon. Sterile dressings were applied. A well molded well-padded splint was applied. The patient was transferred to Recovery in stable condition. Needle and sponge counts were correct. Lonnie Souza MD Aug 31, 2017 13:06
--- NOTE | 2017-08-31 13:31 | HHI.PR ---
Subjective Remarks No new complaints. Pt's pain is controlled. Pt is tolerating PO intake. Objective Vitals Vital Signs Date Time Temp Pulse Resp B/P (MAP) Pulse Ox O2 Delivery O2 Flow Rate FiO2 08/31/17 07:44 98.8 79 18 149/70 (96) 93 08/31/17 04:55 97.8 75 17 134/62 (86) 96 08/31/17 00:44 98 Nasal Cannula 2.00 08/30/17 20:40 98.0 72 18 128/78 (95) 97 08/30/17 18:45 97.6 68 16 164/71 (102) 100 08/30/17 17:34 84 18 161/70 (100) 98 Room Air 08/30/17 16:04 76 18 165/89 (114) 98 Room Air 08/30/17 15:31 66 18 184/80 (114) 99 Room Air 08/31/17 08/31/17 09/01/17 15:00 23:00 07:00 Intake Total 950 ml Output Total 25 ml Balance 925 ml Other 950 ml Output Estimated Blood Loss 25 ml Result Diagram: 08/31/17 0425 08/31/17 0425 Imaging Last Impressions Chest X-Ray 08/30/17 0913 Signed Impressions: Service Date/Time: Wednesday, August 30, 2017 09:59 - CONCLUSION: Minimal left basilar atelectasis. Telly Kilpatrick MD Ankle X-Ray 08/30/17 0802 Signed Impressions: Service Date/Time: Wednesday, August 30, 2017 08:26 - CONCLUSION: Displaced bimalleolar fracture. Juanito Arias MD Objective Remarks GENERAL: This is a well-nourished, well-developed patient, in no apparent distress. CARDIOVASCULAR: Regular rate and rhythm without murmurs, gallops, or rubs. RESPIRATORY: Clear to auscultation. Breath sounds equal bilaterally. No wheezes , rales, or rhonchi. GASTROINTESTINAL: Abdomen soft, non-tender, nondistended. Normal active bowel sounds MUSCULOSKELETAL: LLE is bandaged, c/d/i NEURO: Alert & Oriented x4 to person, place, time, situation. Moves all ext x4 A/P Problem List: (1) Trimalleolar fracture of left ankle ICD Codes: S82.852A - Displaced trimalleolar fracture of left lower leg, initial encounter for closed fracture Status: Acute Plan: - While walking downstairs (08/30/17) at home patient had a mechanical fall and slipped down the stairs on her buttocks. - Patient noted immediate pain into her left ankle and inability to bear weight on the left lower extremity. - X-ray (08/30/17) of the left ankle shows bimalleolar fracture. - Pt underwent ORIF Left ankle (08/31/17) performed by Dr. Lonnie Light - amy prn pain - DVT prophylaxis - supportive care - pt may need SNF upon discharge. 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 - T3, N0, M0, G3 - Patient completed chemotherapy with gemcitabine February 2017. - Patient follows at the [facility] in [place], and with Dr. Ishan Selby locally. - Pt had f/u apointment for this week at [facility] - Dr. Selby notified about the hospitalization, pt does NOT need Oncology consult at this time. (4) COPD (chronic obstructive pulmonary disease) ICD Codes: J44.9 - Chronic obstructive pulmonary disease, unspecified Status: Chronic Plan: - former smoker - wyatt prn Problem Qualifiers (1) Trimalleolar fracture of left ankle: Qualified Codes: S82.852A - Displaced trimalleolar fracture of left lower leg, initial encounter for closed fracture (2) HTN (hypertension): Qualified Codes: I10 - Essential (primary) hypertension (3) Pancreatic cancer: Qualified Codes: C25.2 - Malignant neoplasm of tail of pancreas (4) COPD (chronic obstructive pulmonary disease): Qualified Codes: J44.9 - Chronic obstructive pulmonary disease, unspecified Ruben Ray DO Aug 31, 2017 13:31
[2017-08-31] MEDS ORDERED: *morphine SULFATE 8 MG/ML PERIprocedure ONLY ONE (13:39)
[2017-08-31] MEDS ORDERED: DO NOT ADM ANY ANTICOAGULANT DRUGS PRN (14:00)
[2017-08-31] MEDS ORDERED: Post-op Orders (for Pharmacy) XX ONE (14:00)
[2017-08-31] MEDS ORDERED: *morphine SULFATE 4 MG/ML PERIprocedure ONLY ONE (14:14)
--- NOTE | 2017-08-31 15:53 | RADRPT ---
EXAM DATE/TIME: 08/31/2017 12:49 [place] COMPARISON: ANKLE LEFT COMPLETE ([id number]), August 30, 2017, 8:26. INDICATIONS : ORIF left ankle fracture. MEDICAL HISTORY : Unobtaiable. SURGICAL HISTORY : Unobtainable. ENCOUNTER: Subsequent ACUITY: 2 days PAIN SCORE: Non-responsive. LOCATION: Left ankle. FINDINGS: 3 intraoperative spot images of the left ankle. Lateral internal fixation plate of the distal fibula. 2 cannulated screws in the medial malleolus. Alignment is near-anatomic. CONCLUSION: Distal tibia and fibular fractures with intraoperative spot images showing internal fixation hardware . Robert Bustamante MD on August 31, 2017 at 15:49 Board Certified Radiologist. This report was verified electronically.
[2017-08-31] MEDS: ENALAPRILAT 1.25 MG/ML VIAL IV PRN (16:36)
[2017-08-31] MEDS ORDERED: ceFAZolin 2 GM PREMIX 50 ML IV SCH (20:00)
[2017-08-31] MEDS: MAGNESIUM HYDROXIDE SUSP 30 ML CUP PO PRN (20:43)
[2017-09-01] VITALS: BP 160/73; PULSE 68; RESP 20; TEMP 98.1; O2SAT 93
[2017-09-01] MEDS: ENALAPRILAT 1.25 MG/ML VIAL IV PRN (00:38)
[2017-09-01] MEDS: NS + KCL 20 MEQ INJ 1,000 ML IV SCH ×2 (02:50→19:00)
[2017-09-01] MEDS: ENOXAPARIN SODIUM 30 MG/0.3 ML SYRINGE SQ SCH (02:50)
[2017-09-01 04:00] VITALS: BP 167/70; PULSE 73; RESP 20; TEMP 98.2; O2SAT 92
[2017-09-01] MEDS: cloNIDine HCL 0.2 MG TAB PO PRN (05:46)
--- NOTE | 2017-09-01 07:03 | PD.ORT.PN ---
Subjective Subjective Remarks POD 1 status post ORIF of left ankle Doing well. Pain controlled. Has not been out of bed yet. Objective Vitals Vital Signs Date Time Temp Pulse Resp B/P (MAP) Pulse Ox O2 Delivery O2 Flow Rate FiO2 09/01/17 04:00 98.2 73 20 167/70 (102) 92 09/01/17 00:00 98.1 68 20 160/73 (102) 93 08/31/17 20:00 97.7 69 20 143/71 (95) 93 08/31/17 17:18 129/69 (89) 08/31/17 16:43 Nasal Cannula 2.00 08/31/17 16:10 98 Nasal Cannula 2.00 08/31/17 15:34 98.0 68 19 189/79 (115) 98 08/31/17 15:08 Nasal Cannula 2.00 08/31/17 14:30 97.6 70 16 147/64 (91) 96 Nasal Cannula 2 08/31/17 14:19 15 08/31/17 14:15 73 16 149/69 (95) 95 Nasal Cannula 2 08/31/17 14:00 76 15 157/70 (99) 94 Nasal Cannula 2 08/31/17 13:45 78 15 151/69 (96) 99 Nasal Cannula 3 08/31/17 13:44 15 08/31/17 13:30 98.1 80 17 146/70 (95) 97 Nasal Cannula 3 08/31/17 07:44 98.8 79 18 149/70 (96) 93 I/O 08/31/17 08/31/17 08/31/17 09/01/17 09/01/17 09/01/17 07:00 15:00 23:00 07:00 15:00 23:00 Intake Total 360 ml 950 ml 120 ml Output Total 25 ml 400 ml Balance 360 ml 925 ml -280 ml Intake Oral 360 ml 120 ml Other 950 ml Output Urine Total 400 ml Estimated Blood Loss 25 ml # Voids 2 # Bowel Movements 0 Result Diagram: 08/31/17 0425 08/31/17 0425 Imaging Last 24 hours Impressions Chest X-Ray 08/30/17 0913 Signed Impressions: Service Date/Time: Wednesday, August 30, 2017 09:59 - CONCLUSION: Minimal left basilar atelectasis. Telly Kilpatrick MD Ankle X-Ray 08/30/17801 Signed Impressions: Service Date/Time: Wednesday, August 30, 2017 08:26 - CONCLUSION: Displaced bimalleolar fracture. Juanito Arias MD Ankle X-Ray 08/30/17801 Signed Impressions: Service Date/Time: Wednesday, August 30, 2017 09:49 - CONCLUSION: Postreduction study as described. Juanito Arias MD Objective Remarks LLE: Dressings clean and dry. Intact. Splint intact. Full sensation to toes. Assessment & Plan Assessment and Plan 1) Left bimalleolar ankle fracture dislocation s/p ORIF - POD 1 -NWB -maintain splint at all times -PT for gait training with walker -CM for SNF placement -f/u with Kuldeep or PA in 2 weeks Giuseppe Reynaga PA/[employer] PA Sep 01, 2017 07:03
[2017-09-01 07:35] VITALS: BP 182/77; PULSE 69; RESP 19; TEMP 98; O2SAT 97
[2017-09-01] MEDS: ACETAMINOPHEN/HYDROcodone 325 MG/5 MG TAB PO PRN ×4 (07:41→23:26)
[2017-09-01] MEDS: PANTOPRAZOLE SOD 20 MG DELAYED RELEASE TAB PO SCH (07:41)
[2017-09-01] MEDS: LABETALOL HCL 200 MG TAB PO SCH ×3 (07:41→17:07)
[2017-09-01] MEDS: ENALAPRIL MALEATE 10 MG TAB PO SCH ×2 (07:41→20:02)
[2017-09-01] MEDS: TRIAMTERENE/HCTZ 37.5 MG/25 MG TAB PO SCH (07:42)
[2017-09-01] MEDS: MESALAMINE HD 800 MG DELAYED RELEASE TAB PO SCH ×3 (07:44→18:00)
[2017-09-01] MEDS: SODIUM CHLORIDE 0.9% FLUSH 10 ML FLUSH IV FLUSH SCH ×2 (07:45→20:02)
--- NOTE | 2017-09-01 10:43 | HHI.DCPOC ---
Discharge Care Plan Diagnosis: (1) Pancreatic cancer (2) HTN (hypertension) (3) Trimalleolar fracture of left ankle Goals to Promote Your Health * To prevent worsening of your condition and complications * To maintain your health at the optimal level Directions to Meet Your Goals Take your medications as prescribed Follow your dietary instruction Follow activity as directed Keep your appointments as scheduled Take your immunizations and boosters as scheduled If your symptoms worsen call your PCP, if no PCP go to Urgent Care Center or Emergency Room Smoking is Dangerous to Your Health. Avoid second hand smoke Call the 24-hour hour crisis hotline for domestic abuse at Karina Boone Sep 01, 2017 10:42
--- NOTE | 2017-09-01 10:46 | HHI.DS ---
Discharge Summary Admission Date Aug 30, 2017 at 10:26 Discharge Date: Sep 02, 2017 Admitting Diagnosis Trimalleolar fracture of left ankle (1) Trimalleolar fracture of left ankle ICD Codes: S82.852A - Displaced trimalleolar fracture of left lower leg, initial encounter for closed fracture Status: Acute (2) HTN (hypertension) ICD Codes: I10 - Essential (primary) hypertension Status: Chronic (3) Pancreatic cancer ICD Codes: C25.9 - Malignant neoplasm of pancreas, unspecified Status: Chronic (4) COPD (chronic obstructive pulmonary disease) ICD Codes: J44.9 - Chronic obstructive pulmonary disease, unspecified Status: Chronic Consultants Dr. Light, orthopedic surgery Procedures ORIF Left ankle (08/31/17) performed by Dr. Lonnie Light Brief History Patient's records have been reviewed in the [facility] EHR and [facility]. Pt was interviewed in the ER and her [id number] gave supporting details. Patient is a pleasant 77-year-old female with history of pancreatic cancer, s/p surgical resection and chemotherapy. Patient also has COPD and hypertension. While walking downstairs this morning patient had a mechanical fall and slipped down the stairs on her buttocks. Patient noted immediate pain into her left ankle and inability to bear weight on the left lower extremity. X-ray (08/30/17) of the left ankle shows bimalleolar fracture. Pt is NPO and will go to the OR with Dr. Lonnie Light for surgical repair. Patient admitted to [facility] for further evaluation and treatment. CBC/BMP: 08/31/17 0425 08/31/17 0425 Significant Findings Laboratory Tests Test 08/30/17 09:15 08/30/17 20:52 08/31/17 04:25 Platelet Count 454 TH/MM3 (150-450) Monocytes (%) (Auto) 9.2 % (0.0-8.0) 15.9 % (0.0-8.0) Activated Partial Thromboplast Time 21.5 SEC (24.3-30.1) Creatinine 1.10 MG/DL (0.50-1.00) Random Glucose 160 MG/DL (74-106) 117 MG/DL (74-106) Estimat Glomerular Filtration Rate 48 ML/MIN (>89) 70 ML/MIN (>89) Red Blood Count 3.59 MIL/MM3 (4.00-5.30) Hemoglobin 10.8 GM/DL (11.6-15.3) Hematocrit 32.3 % (35.0-46.0) Monocytes # (Auto) 1.2 TH/MM3 (0-0.9) Calcium Level 8.1 MG/DL (8.5-10.1) Imaging Last Impressions Ankle X-Ray 08/31/17 0000 Signed Impressions: Service Date/Time: Thursday, August 31, 2017 12:49 - CONCLUSION: Distal tibia and fibular fractures with intraoperative spot images showing internal fixation hardware. Robert Bustamante MD Chest X-Ray 08/30/17 0913 Signed Impressions: Service Date/Time: Wednesday, August 30, 2017 09:59 - CONCLUSION: Minimal left basilar atelectasis. Telly Kilpatrick MD PE at Discharge GENERAL: This is a well-nourished, well-developed patient, in no apparent distress. CARDIOVASCULAR: Regular rate and rhythm without murmurs, gallops, or rubs. RESPIRATORY: Clear to auscultation. Breath sounds equal bilaterally. No wheezes , rales, or rhonchi. GASTROINTESTINAL: Abdomen soft, non-tender, nondistended. Normal active bowel sounds MUSCULOSKELETAL: LLE is bandaged, c/d/i NEURO: Alert & Oriented x4 to person, place, time, situation. Moves all ext x4 Hospital Course Trimalleolar fracture of left ankle - While walking downstairs (08/30/17) at home patient had a mechanical fall and slipped down the stairs on her buttocks. - Patient noted immediate pain into her left ankle and inability to bear weight on the left lower extremity. - X-ray (08/30/17) of the left ankle shows bimalleolar fracture. - Pt underwent ORIF Left ankle (08/31/17) performed by Dr. 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 - T3, N0, M0, G3 - Patient completed chemotherapy with gemcitabine February 2017. - Patient follows at the [facility] in [place], and with Dr. Ishan Selby locally. - Pt had f/u apointment for this week at [facility] - Dr. Selby notified about the hospitalization, pt does NOT need Oncology consult at this time. COPD (chronic obstructive pulmonary disease) - former smoker - duonebs prn Pt Condition on Discharge: Stable Discharge Disposition: Discharge to SNF Discharge Instructions DIET: Follow Instructions for: Heart Healthy Diet Activities you can perform: See Additionl Instruction Other Activity Instructions: activity per orthopedic surgery nonweight bearing left lower extremity Follow up Referrals: Orthopedics - 2 Weeks @ [facility] with Lonnie Light MD PCP Follow-up - [address] Berg New Medications: Hydrocodone-Acetaminophen (Hydrocodone-Acetaminophen) 7.5 Mg-325 Mg Tab 1 TAB PO Q4H PRN for PAIN, #60 TAB 0 Refills Nifedipine ER 24 HR (Procardia XL) 30 Mg Tab 30 MG PO HS for blood pressure, #30 TAB 0 Refills Walker/Adult/Folding (Walker/Adult/Folding) 1 Mis Mis EA .XX DIRECTED, #1 0 Refills Clonidine (Catapres) 0.2 Mg Tab 0.2 MG PO Q6H PRN for SBP above 160 for 30 Days, #120 TAB 0 Refills Enoxaparin Inj (Lovenox Inj) 30 Mg/0.3 Ml Syr 30 MG SQ Q24H for Blood Clot Prevention for 5 Days, INJECTION Changed Medications: Lorazepam (Lorazepam) 1 Mg Tab 1 MG PO Q8HR PRN for ANXIETY, #30 TAB 0 Refills (Changed from: DAILY) Continued Medications: Dicyclomine (Bentyl) 10 Mg Cap 10 MG PO TID PRN for Bowel Management, #20 CAP 0 Refills Enalapril (Enalapril) 20 Mg Tab 20 MG PO BID, #30 TAB 0 Refills Labetalol (Labetalol) 200 Mg Tab 200 MG PO TID for Blood Pressure Management, TAB [address] (Asacol HD) 800 Mg Tab 1600 MG PO TID for Ulcerative colitis, TAB 0 Refills Swallow whole. Take on an empty stomach. Omeprazole (Omeprazole) 20 Mg Tab 20 MG PO DAILY, #30 TAB 0 Refills Ondansetron Odt (Zofran Odt) 4 Mg Tab 4 MG SL Q6HR PRN for Nausea/Vomiting, #20 TAB 0 Refills Triamterene-Hydrochlorothiazide (Triamterene-Hydrochlorothiazide) 37.5-25 Mg Tab 1 TAB PO DAILY, #30 TAB 0 Refills Karina Boone Sep 01, 2017 10:46
[2017-09-01 11:46] VITALS: BP 141/65; PULSE 69; RESP 19; TEMP 97.5; O2SAT 95
--- NOTE | 2017-09-01 13:01 | HHI.PR ---
Subjective Remarks Patient offers no new complaints Patient's family would like patient to go to [facility], awaiting authorization or denial regarding [facility] re[facility] Objective Vitals Vital Signs Date Time Temp Pulse Resp B/P (MAP) Pulse Ox O2 Delivery O2 Flow Rate FiO2 09/01/17 12:38 18 09/01/17 11:46 97.5 69 19 141/65 (90) 95 09/01/17 07:35 98.0 69 19 182/77 (112) 97 09/01/17 04:00 98.2 73 20 167/70 (102) 92 09/01/17 00:00 98.1 68 20 160/73 (102) 93 08/31/17 20:00 97.7 69 20 143/71 (95) 93 08/31/17 17:18 129/69 (89) 08/31/17 16:43 Nasal Cannula 2.00 08/31/17 16:10 98 Nasal Cannula 2.00 08/31/17 15:34 98.0 68 19 189/79 (115) 98 08/31/17 15:08 Nasal Cannula 2.00 08/31/17 14:30 97.6 70 16 147/64 (91) 96 Nasal Cannula 2 08/31/17 14:19 15 08/31/17 14:15 73 16 149/69 (95) 95 Nasal Cannula 2 08/31/17 14:00 76 15 157/70 (99) 94 Nasal Cannula 2 08/31/17 13:45 78 15 151/69 (96) 99 Nasal Cannula 3 08/31/17 13:44 15 08/31/17 13:30 98.1 80 17 146/70 (95) 97 Nasal Cannula 3 Result Diagram: 08/31/17 0425 08/31/17 0425 Other Results Laboratory Tests Test 08/30/17 09:15 08/30/17 20:52 08/31/17 04:25 White Blood Count 9.5 TH/MM3 7.4 TH/MM3 Red Blood Count 4.17 MIL/MM3 3.59 MIL/MM3 Hemoglobin 12.7 GM/DL 10.8 GM/DL Hematocrit 37.4 % 32.3 % Mean Corpuscular Volume 89.6 FL 89.9 FL Mean Corpuscular Hemoglobin 30.4 PG 30.0 PG Mean Corpuscular Hemoglobin Concent 33.9 % 33.4 % Red Cell Distribution Width 14.7 % 14.7 % Platelet Count 454 TH/MM3 383 TH/MM3 Mean Platelet Volume 9.2 FL 8.7 FL Neutrophils (%) (Auto) 62.0 % 48.6 % Lymphocytes (%) (Auto) 25.6 % 33.1 % Monocytes (%) (Auto) 9.2 % 15.9 % Eosinophils (%) (Auto) 2.5 % 1.9 % Basophils (%) (Auto) 0.7 % 0.5 % Neutrophils # (Auto) 5.9 TH/MM3 3.6 TH/MM3 Lymphocytes # (Auto) 2.4 TH/MM3 2.5 TH/MM3 Monocytes # (Auto) 0.9 TH/MM3 1.2 TH/MM3 Eosinophils # (Auto) 0.2 TH/MM3 0.1 TH/MM3 Basophils # (Auto) 0.1 TH/MM3 0.0 TH/MM3 CBC Comment DIFF FINAL DIFF FINAL Differential Comment Prothrombin Time 10.4 SEC Prothromb Time International Ratio 1.0 RATIO Activated Partial Thromboplast Time 21.5 SEC Blood Urea Nitrogen 18 MG/DL 16 MG/DL Creatinine 1.10 MG/DL 0.80 MG/DL Random Glucose 160 MG/DL 117 MG/DL Total Protein 7.7 GM/DL Albumin 3.6 GM/DL Calcium Level 9.5 MG/DL 8.1 MG/DL Alkaline Phosphatase 80 U/L Aspartate Amino Transf (AST/SGOT) 16 U/L Alanine Aminotransferase (ALT/SGPT) 21 U/L Total Bilirubin 0.5 MG/DL Sodium Level 136 MEQ/L 140 MEQ/L Potassium Level 4.0 MEQ/L 3.9 MEQ/L Chloride Level 98 MEQ/L 104 MEQ/L Carbon Dioxide Level 28.6 MEQ/L 29.2 MEQ/L Anion Gap 9 MEQ/L 7 MEQ/L Estimat Glomerular Filtration Rate 48 ML/MIN 70 ML/MIN Urine Color YELLOW Urine Turbidity CLEAR Urine pH 6.0 Urine Specific [place] 1.019 Urine Protein TRACE mg/dL Urine Glucose (UA) NEG mg/dL Urine Ketones NEG mg/dL Urine Occult Blood NEG Urine Nitrite NEG Urine Bilirubin NEG Urine Urobilinogen LESS THAN 2.0 MG/DL Urine Leukocyte Esterase NEG Urine RBC 1 /hpf Urine WBC 1 /hpf Urine Squamous Epithelial Cells 4 /hpf Microscopic Urinalysis Comment CULT NOT INDICATED Imaging Last Impressions Chest X-Ray 4/23/18 0913 Signed Impressions: Service Date/Time: Wednesday, August 30, 2017 09:59 - CONCLUSION: Minimal left basilar atelectasis. Telly Kilpatrick MD Ankle X-Ray 08/30/17 0802 Signed Impressions: Service Date/Time: Wednesday, August 30, 2017 08:26 - CONCLUSION: Displaced bimalleolar fracture. Juanito Arias MD Objective Remarks GENERAL: This is a well-nourished, well-developed patient, in no apparent distress. CARDIOVASCULAR: Regular rate and rhythm without murmurs, gallops, or rubs. RESPIRATORY: Clear to auscultation. Breath sounds equal bilaterally. No wheezes , rales, or rhonchi. GASTROINTESTINAL: Abdomen soft, non-tender, nondistended. Normal active bowel sounds MUSCULOSKELETAL: LLE is bandaged, c/d/i NEURO: Alert & Oriented x4 to person, place, time, situation. Moves all ext x4 Procedures ORIF Left ankle (08/31/17) performed by Dr. Lonnie Light A/P Problem List: (1) Trimalleolar fracture of left ankle ICD Codes: S82.852A - Displaced trimalleolar fracture of left lower leg, initial encounter for closed fracture Status: Acute Plan: - While walking downstairs (08/30/17) at home patient had a mechanical fall and slipped down the stairs on her buttocks. - Patient noted immediate pain into her left ankle and inability to bear weight on the left lower extremity. - X-ray (08/30/17) of the left ankle shows bimalleolar fracture. - Pt is NPO and will go to the OR with Dr. Lonnie Light for surgical repair. - norco/dilaudid prn pain - DVT prophylaxis - supportive care - 08/22 cleared for DC from orthopedic surgery - Patient's family would like patient to go [facility], awaiting authorization or denial regarding [facility] - plan to DC later today [facility] vs SNF (2) HTN (hypertension) ICD Codes: I10 - Essential (primary) hypertension Status: Chronic Plan: - resume home meds: - labetalol 200mg TID - triamterene/HCTZ - enalapril - prn Catapres/hydralazine/vasotec - observe (3) Pancreatic cancer ICD Codes: C25.9 - Malignant neoplasm of pancreas, unspecified Status: Chronic Plan: - Patient underwent distal pancreatectomy and splenectomy at the 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 - T3, N0, M0, G3 - Patient completed chemotherapy with gemcitabine February 2017. - Patient follows at the [facility] in [place], and with Dr. Ishan Selby locally. - Pt had f/u apointment for this week at [facility] - Will let Dr. Selby know pt is hospitalized, but does NOT need Oncology consult at this time. (4) COPD (chronic obstructive pulmonary disease) ICD Codes: J44.9 - Chronic obstructive pulmonary disease, unspecified Status: Chronic Plan: - former smoker - duonebs prn Problem Qualifiers (1) Trimalleolar fracture of left ankle: Qualified Codes: S82.852A - Displaced trimalleolar fracture of left lower leg, initial encounter for closed fracture (2) HTN (hypertension): Qualified Codes: I10 - Essential (primary) hypertension (3) Pancreatic cancer: Qualified Codes: C25.2 - Malignant neoplasm of tail of pancreas (4) COPD (chronic obstructive pulmonary disease): Qualified Codes: J44.9 - Chronic obstructive pulmonary disease, unspecified Karina Boone Sep 01, 2017 13:01
[2017-09-01] MEDS ORDERED: LORA1TAB12 PO (14:19)
--- NOTE | 2017-09-01 14:24 | HHI.DCPOC ---
Discharge Care Plan Diagnosis: (1) Trimalleolar fracture of left ankle (2) HTN (hypertension) (3) Pancreatic cancer (4) COPD (chronic obstructive pulmonary disease) Goals to Promote Your Health * To prevent worsening of your condition and complications * To maintain your health at the optimal level Directions to Meet Your Goals Take your medications as prescribed Follow your dietary instruction Follow activity as directed Keep your appointments as scheduled Take your immunizations and boosters as scheduled If your symptoms worsen call your PCP, if no PCP go to Urgent Care Center or Emergency Room Smoking is Dangerous to Your Health. Avoid second hand smoke Call the 24-hour hour crisis hotline for domestic abuse at Ruben Ray DO Sep 01, 2017 14:24
[2017-09-01] MEDS ORDERED: ENOX30P SQ (14:26)
[2017-09-01] MEDS ORDERED: CLON.2 PO (14:38)
[2017-09-01 17:10] VITALS: BP 168/72; PULSE 63; RESP 18; TEMP 97.6; O2SAT 97
[2017-09-01] MEDS: MAGNESIUM HYDROXIDE SUSP 30 ML CUP PO PRN (20:02)
[2017-09-01 20:09] VITALS: BP 140/64; PULSE 67; RESP 18; TEMP 98.1; O2SAT 94
[2017-09-02] VITALS: BP 167/77; PULSE 62; RESP 18; TEMP 97.4; O2SAT 95
[2017-09-02] MEDS: cloNIDine HCL 0.2 MG TAB PO PRN (01:14)
[2017-09-02] MEDS: ENOXAPARIN SODIUM 30 MG/0.3 ML SYRINGE SQ SCH (01:14)
[2017-09-02] MEDS: ACETAMINOPHEN/HYDROcodone 325 MG/5 MG TAB PO PRN ×3 (05:27→13:18)
[2017-09-02] MEDS: ENALAPRILAT 1.25 MG/ML VIAL IV PRN (05:27)
--- NOTE | 2017-09-02 07:13 | PD.ORT.PN ---
Subjective Subjective Remarks POD 2 status post ORIF of left ankle Doing well. Pain controlled. out of bed with assistance Objective Vitals Vital Signs Date Time Temp Pulse Resp B/P (MAP) Pulse Ox O2 Delivery O2 Flow Rate FiO2 09/02/17 00:00 97.4 62 18 167/77 (107) 95 09/01/17 20:09 98.1 67 18 140/64 (89) 94 09/01/17 17:10 97.6 63 18 168/72 (104) 97 09/01/17 12:38 18 09/01/17 11:46 97.5 69 19 141/65 (90) 95 09/01/17 07:35 98.0 69 19 182/77 (112) 97 I/O 09/01/17 09/01/17 09/01/17 09/02/17 09/02/17 09/02/17 07:00 15:00 23:00 07:00 15:00 23:00 Intake Total 1320 ml 850 ml Output Total 400 ml Balance 920 ml 850 ml Intake Oral 120 ml 850 ml IV Total 1200 ml Output Urine Total 400 ml # Voids 4 Result Diagram: 08/31/17 0425 08/31/17 0425 Imaging Last 24 hours Impressions Chest X-Ray 08/30/17912 Signed Impressions: Service Date/Time: Wednesday, August 30, 2017 09:59 - CONCLUSION: Minimal left basilar atelectasis. Telly Kilpatrick MD Ankle X-Ray 08/30/17801 Signed Impressions: Service Date/Time: Wednesday, August 30, 2017 08:26 - CONCLUSION: Displaced bimalleolar fracture. Juanito Arias MD Ankle X-Ray 08/30/17801 Signed Impressions: Service Date/Time: Wednesday, August 30, 2017 09:49 - CONCLUSION: Postreduction study as described. Juanito Arias MD Objective Remarks LLE: Dressings clean and dry. Intact. Splint intact. Full sensation to toes. Assessment & Plan Assessment and Plan 1) Left bimalleolar ankle fracture dislocation s/p ORIF - POD 2 -NWB -maintain splint at all times -PT for gait training with walker -CM for SNF placement -ortho clear for DC -f/u with [facility] or [facility] in 2 weeks Giuseppe Reynaga/Biomedical Engineering Supervisor PA Sep 02, 2017 07:13
[2017-09-02 07:45] VITALS: BP 188/86; PULSE 62; RESP 18; TEMP 97.4; O2SAT 95
[2017-09-02] MEDS: ENALAPRIL MALEATE 10 MG TAB PO SCH (08:27)
[2017-09-02] MEDS: TRIAMTERENE/HCTZ 37.5 MG/25 MG TAB PO SCH (08:27)
[2017-09-02] MEDS: LABETALOL HCL 200 MG TAB PO SCH ×2 (08:27→12:20)
[2017-09-02] MEDS: MAGNESIUM HYDROXIDE SUSP 30 ML CUP PO PRN (08:33)
[2017-09-02] MEDS: MESALAMINE HD 800 MG DELAYED RELEASE TAB PO SCH ×2 (08:35→13:00)
[2017-09-02] MEDS: PANTOPRAZOLE SOD 20 MG DELAYED RELEASE TAB PO SCH (08:35)
[2017-09-02] MEDS: SODIUM CHLORIDE 0.9% FLUSH 10 ML FLUSH IV FLUSH SCH (08:35)
[2017-09-02] MEDS: NS + KCL 20 MEQ INJ 1,000 ML IV SCH (08:51)
[2017-09-02] MEDS ORDERED: NIFE1TAB85 PO (09:07)
[2017-09-02 11:45] VITALS: BP 127/60; PULSE 62; RESP 18; TEMP 97.8; O2SAT 94
== END 2017-09-02 13:26 | DRG 494 ==
LOC: NEPC 07:47 → NEDA 10:26 → NEDH 14:36 → N06B 18:12 → NEDA 18:12
PROVIDERS: ADMIT Hospitalist; ATTEND Hospitalist
PROC: 0QSK04Z Reposition Left Fibula with Internal Fixation Device, Open Approach (ICD-10-PCS; 2017-08-31)
PROC: 0SJ Lower Joints, Inspection (ICD-10-PCS; 2017-08-31)
PROC: 0QSH04Z Reposition Left Tibia with Internal Fixation Device, Open Approach (ICD-10-PCS; principal; 2017-08-31 11:58)
DX: S82.842A Displaced bimalleolar fracture of left lower leg, initial encounter for closed fracture (principal); J44.9 Chronic obstructive pulmonary disease, unspecified; S93.432A Sprain of tibiofibular ligament of left ankle, initial encounter; I10 Essential (primary) hypertension; M19.90 Unspecified osteoarthritis, unspecified site; K21.9 Gastro-esophageal reflux disease without esophagitis; M85.80 Other specified disorders of bone density and structure, unspecified site; Z85.07 Personal history of malignant neoplasm of pancreas; Z87.891 Personal history of nicotine dependence; Z90.411 Acquired partial absence of pancreas; Z90.81 Acquired absence of spleen; Z88.8 Allergy status to other drugs, medicaments and biological substances; W10.9XXA Fall (on) (from) unspecified stairs and steps, initial encounter
CPT/HCPCS: 71045; 73600; 73610; 76000; 80048; 80053; 81001; 85025; 85610; 85730; 93005; 94150; C1713; J0690; J1100; J1170; J1580; J1650; J1885; J2270; J2370; J2405; J3010; J3370; J3480